=== PATIENT | female | born 1975 | race Caucasian/White ===

== ENCOUNTER 2022-12-20 21:23 | Emergency (ER) | payer OTHER ==
--- OUTSIDE RECORDS SUMMARY | 2022-12-20 21:33 | XMS REPORT | Continuity of Care Document ---
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 [facility] Td 2016-07-16 Completed [facility] 00:00:00 [facility] Td 2016-07-16 Completed University of 00:00:00 [facility] TD, NOS 2016-07-16 Completed University [facility] 00:00:00 [facility] TD, NOS 2016-07-16 Completed University [facility] 00:00:00 [facility] TD, NOS 2016-07-16 Completed [facility] 00:00:00 [facility] TD, NOS 2016-07-16 Completed [facility] of 00:00:00 [facility] TD, NOS 2016-07-16 Completed University of 00:00:00 [facility] Vital Signs Vital Name Observation Time Observation Value Comments Source Systolic blood 2022-12-17 22:19:00 110 mm[Hg] Beatrice Seybold - pressure External Diastolic blood 2022-12-17 22:19:00 72 mm[Hg] D[place] rosas Seybold - pressure External Heart rate 2022-12-17 22:19:00 84 /min Beatrice almarazbold - External Body temperature 2022-12-17 22:19:00 36.89 Shadia Jennyfer ey Seybold - External Respiratory rate 2022-12-17 22:19:00 17 /min Jennyfer almaraz Seybold - External Body height 2022-12-17 22:19:00 167 cm Beatrice almarazbold - External Body weight 2022-12-17 22:19:00 84.369 kg Beatrice Saldana eybold - External BMI 2022-12-17 22:19:00 30.25 kg/m2 Beatrice almarazbold - External Systolic blood 2022-11-26 19:15:00 112 mm[Hg] Univer sity of pressure [facility] Diastolic blood 2022-11-26 19:15:00 70 mm[Hg] Unive rsity of pressure [facility] Heart rate 2022-11-26 19:15:00 67 /min Universi ty of [facility] Body temperature 2022-11-26 19:15:00 36.72 Shadia Univ ersity of [facility] Respiratory rate 2022-11-26 19:15:00 16 /min Univ ersity of [facility] Body height 2022-11-26 19:15:00 170.2 cm [facility]i ty [facility] Body weight 2022-11-26 19:15:00 83.235 kg [facility]i [facility] BMI 2022-11-26 19:15:00 28.74 kg/m2 Universi ty [facility] Oxygen saturation in 2022-11-26 19:15:00 98 /min University of Arterial blood by [place] [facility] alisa Pulse oximetry Branch Systolic blood 2022-09-10 19:06:00 112 mm[Hg] Univer sity of pressure [facility] Diastolic blood 2022-09-10 19:06:00 74 mm[Hg] Unive rsity of pressure [facility] Heart rate 2022-09-10 19:06:00 82 /min Universi ty [facility] Body temperature 2022-09-10 19:06:00 37 Shadia Univ ersity of [facility] Respiratory rate 2022-09-10 19:06:00 16 /min Univ ersity of [facility] Body height 2022-09-10 19:06:00 172.7 cm [facility] Body weight 2022-09-10 19:06:00 83.416 kg [facility] BMI 2022-09-10 19:06:00 27.96 kg/m2 Universi ty [facility] Oxygen saturation in 2022-09-10 19:06:00 99 /min University of Arterial blood by [facility] Pulse oximetry Branch Body height 2022-09-05 15:48:00 172.7 cm Universi ty of [facility] Systolic blood 2022-08-22 19:44:00 118 mm[Hg] Univer sity of pressure [facility] Diastolic blood 2022-08-22 19:44:00 90 mm[Hg] Unive rsity of pressure [facility] Heart rate 2022-08-22 19:44:00 78 /min Universi ty [facility] Body temperature 2022-08-22 19:44:00 36.56 Shadia Univ ersity of [facility] Respiratory rate 2022-08-22 19:44:00 16 /min Univ ersity of [facility] Body height 2022-08-22 19:44:00 172.7 cm Universi ty [facility] Body weight 2022-08-22 19:44:00 83.915 kg Universi ty [facility] BMI 2022-08-22 19:44:00 28.13 kg/m2 Universi ty [facility] Oxygen saturation in 2022-08-22 19:44:00 98 /min University of Arterial blood by [facility] Pulse oximetry Branch Systolic blood 2022-08-01 12:29:00 120 mm[Hg] Univer sity of pressure [facility] Diastolic blood 2022-08-01 12:29:00 78 mm[Hg] Unive rsity of [facility] Heart rate 2022-08-01 12:29:00 78 /min Universi ty [facility] Body temperature 2022-08-01 12:29:00 36.67 Shadia [facility] Respiratory rate 2022-08-01 12:29:00 15 /min Univ [facility] Body height 2022-08-01 12:29:00 172.7 cm Universi ty [facility] Body weight 2022-08-01 12:29:00 83.689 kg Universi ty [facility] BMI 2022-08-01 12:29:00 28.05 kg/m2 Universi ty [facility] Oxygen saturation in 2022-08-01 12:29:00 100 /min University of Arterial blood by [facility] Pulse oximetry [place] Procedures Procedure Date / Time Performing Clinician Source Performed POCT HEMOGLOBIN A1C TEST 2022-11-26 19:36:00 Viola Ly [facility] TESTOSTERONE, FREE AND 2022-11-26 09:00:00 Viola Ly [facility] TOTAL [facility] PROGESTERONE, LEVEL 2022-11-26 09:00:00 Viola Ly [facility] ESTRADIOL, LEVEL 2022-11-26 09:00:00 Viola Ly [facility] CBC WITH DIFF 2022-11-26 09:00:00 Viola Ly [facility] INSURANCE CORRESPONDENCE 2022-09-25 06:01:00 Doctor Unassigned, [facility] Rudy [facility] EXTERNAL PROVIDER RECORDS 2022-09-05 06:01:00 Doctor Unassigned, [facility] CONSENT/REFUSAL FOR 2022-08-22 19:40:01 Doctor Unassigned, [facility] DIAGNOSIS AND TREATMENT [facility] Plan of Care Planned Activity Planned Date Details Comments Source Future Scheduled Test 2022-07-20 IMM Influenza Seasonal [facility] 00:00:00 (>/= 19 yrs) [code = IMM Influenza Seasonal (>/= 19 yrs)] Future Scheduled Test 2022-07-20 IMM Influenza Seasonal [facility] 00:00:00 (>/= 19 yrs) [code = IMM Influenza Seasonal (>/= 19 yrs)] Future Scheduled Test 2022-07-20 IMM Influenza Seasonal [facility] 00:00:00 (>/= 19 yrs) [code = IMM Influenza Seasonal (>/= 19 yrs)] Future Scheduled Test 2022-07-20 IMM Influenza Seasonal [facility] 00:00:00 (>/= 19 yrs) [code = IMM Influenza Seasonal (>/= 19 yrs)] Future Scheduled Test 1979 Imm Pneumococcal 0-64 [facility] 00:00:00 (1 - PCV) [code = Imm Pneumococcal 0-64 (1 - PCV)] Future Scheduled Test 1979 Imm Pneumococcal 0-64 [facility] 00:00:00 (1 - PCV) [code = Imm Pneumococcal 0-64 (1 - PCV)] Future Scheduled Test 1979 Imm Pneumococcal 0-64 [facility] 00:00:00 (1 - PCV) [code = Imm Pneumococcal 0-64 (1 - PCV)] Future Scheduled Test 1979 Imm Pneumococcal 0-64 [facility] 00:00:00 (1 - PCV) [code = Imm Pneumococcal 0-64 (1 - PCV)] Future Scheduled Test 1974-01-24 COVID-19 Vaccine (#1) [facility] 00:00:00 [code = COVID-19 Vaccine (#1)] Future Scheduled Test 1974-01-24 COVID-19 Vaccine (#1) [facility] 00:00:00 [code = COVID-19 Vaccine (#1)] Future Scheduled Test 1974-01-24 COVID-19 Vaccine (#1) [facility] 00:00:00 [code = COVID-19 Vaccine (#1)] Future Scheduled Test 1974-01-24 COVID-19 Vaccine (#1) [facility] 00:00:00 [code = COVID-19 Vaccine (#1)] Encounters Start End Encounter Admission Attending Care Care Encounter Source Date/Time Date/Time Type Type Clinicians Facility Department ID 2021-08-21 Emergency [facility] [id number] [facility] 2022-12-17 2022-12-20 Inpatient EM Mic NARCISA MEDI.01 [id number] [facility] 23:10:00 18:54:00 Jyothi 67 [facility] 2022-12-19 2022-12-19 Outpatient CHAYO MONROY [id number] Beatrice 00:00:00 00:00:00 MD Saqib GATES 2022-12-19 2022-12-19 Refalisson Sorto [facility] [id number] Univers 00:00:00 00:00:00 [facility] 350.1.13.10 it y [facility] 4.2.7.2.686 Darrel as AARON?BLEA [id number] [address] MEDICAL OFFICE BUILDING 2022-12-17 2022-12-17 Outpatient BEN CORNELL [id number] Beatrice 16:30:00 16:30:00 Saqib ascencio 2022-12-17 2022-12-17 Outpatient BEN CORNELL [id number] Beatrice 00:00:00 00:00:00 Saqib ascencio 2022-12-13 2022-12-13 Emergency EM NARCISA Garrett [id number] [facility] 14:32:00 19:06:00 Fab 62 [facility] 2022-12-13 2022-12-13 Outpatient BEATRICE MARTINEZ [id number] Beatrice 10:15:00 10:15:00 NANCY ascencio 2022-12-09 2022-12-09 Emergency EM NARCISA Murillo [id number] [facility] 18:41:00 21:41:00 Emigdio 53 [facility] 2022-11-28 2022-11-28 Patient Malachi [facility] 1.2.840.114 [id number] Univers 00:00:00 00:00:00 Secure Msg Viola SHERIFF 350.1.13.10 ity of [place] [facility] 4.2.7.2.686 Darrel as CLINIC - [id number] [address] 2022-11-26 2022-11-26 Outpatient Shannan LY [facility] [id number] Univers 13:30:00 16:05:40 VIOLA ity [facility] 2022-11-26 2022-11-[address] [facility] 1.2.840.114 [id number] Univers 13:30:00 16:05:40 Visit Viola SHERIFF 350.1.13.10 it y of [place] [facility] 4.2.7.2.686 Darrel as CLINIC - [id number] [address] 2022-09-25 2022-09-25 Orders Doctor JAILYN 1.2.840.114 [id number] Univers 00:00:00 00:00:00 Only Unassigned, JESSICA 350.1.13.10 ity of Rudy [facility] 4.2.7.2.686 Darrel as [id number] [address] 2022-09-23 2022-09-23 Outpatient [facility] [id number] Martin 00:00:00 00:00:00 [facility] 2022-09-16 2022-09-[address] [facility] 1.2.840.114 [id number] Univers 00:00:00 00:00:00 Secure Msg Viola SHERIFF 350.1.13.10 ity of [place] [facility] 4.2.7.2.686 Darrel as CLINIC - [id number] [address] 2022-09-10 2022-09-[address] [facility] 1.2.840.114 [id number] Univers 13:00:00 13:30:00 Visit Viola SHERIFF 350.1.13.10 it y of [place] [facility] 4.2.7.2.686 Darrel as CLINIC - [id number] [address] 2022-09-10 2022-09-10 [facility] [id number] Univers 13:00:00 13:00:00 VIOLA martinez of [facility] 2022-09-09 2022-09-09 [facility] 1.2.840.114 [id number] Univers 00:00:00 00:00:00 Juleeshayna IBARRA 350.1.13.10 ity of IALTY 4.2.7.2.[address] [place] [id number] DIABETES CLINIC 2022-09-05 2022-09-05 [facility] 1.2.840.114 [id number] Univers 09:00:00 09:30:00 Visit Julee IBARRA 350.1.13.10 ity of IALTY 4.2.7.2.[address] [place] [id number] DIABETES CLINIC 2022-09-05 2022-09-05 Outpatient R [facility] [id number] Univers 09:00:00 09:00:00 JULEE martinez [facility] 2022-09-05 2022-09-05 Orders Doctor JAILYN 1.2.840.114 [id number] Univers 00:00:00 00:00:00 Only Unassigned, JESSICA 350.1.13.10 ity of Rudy [facility] 4.2.7.2.686 [facility] [id number] [facility] 009 Branch 2022-08-22 2022-08-22 Emergency X [facility] ERT [id number] Univers 14:46:00 15:35:00 CHRIS martinez of [facility] 2022-08-22 2022-08-[address] [facility] [id number] Univers 14:46:00 15:35:00 Chris REEDER 350.1.13.10 i ty of Jose THAKUR 4.2.7.2.686 [facility] [phone] [facility] 084 Branch 2022-08-12 2022-08-[address] [facility] 1.2.509.548 [id number] Univers 00:00:00 00:00:00 Viola SHERIFF 350.1.13.10 it y of [place] 4.2.7.2.686 Darrel as CLINIC - [id number] [address] 2022-08-01 2022-08-01 Office Malachi [facility] 1.2.840.114 [id number] Univers 07:30:00 08:00:00 Visit Viola SHERIFF 350.1.13.10 it y of [place] [facility] 4.2.7.2.686 Darrel as CLINIC - [phone] [address] 2022-08-01 2022-08-01 Outpatient R MALACHI [facility] [id number] Univers 07:30:00 07:30:[facility] 2022-06-17 2022-06-[address] [facility] 1.2.840.114 [id number] Univers 00:00:00 00:00:00 Viola SHERIFF 350.1.13.10 it y of [place] 4.2.7.2.686 Darrel as CLINIC - [phone] [address] 2022-06-13 2022-06-[address] [facility] 1.2.840.114 [id number] Univers 00:00:00 00:00:00 AbdoulMouth Party 350.1.13.10 it y of [place] 4.2.7.2.686 Darrel as AARON?BLEA [phone] [address] MEDICAL OFFICE BUILDING 2022-05-01 2022-05-01 Outpatient R PARI [facility] [id number] Univers 08:15:00 08:15:00 [facility] 2022-04-30 2022-04-[address] [facility] 1.2.840.114 [id number] Univers 13:30:00 14:00:00 Visit Viola SHERIFF 350.1.13.10 it y of [place] [facility] 4.2.7.2.686 Darrel as CLINIC - [id number] [address] 2022-04-30 2022-04-30 Outpatient R MALACHI [facility] [id number] Univers 13:30:00 13:30:00 [facility] 2022-04-30 2022-04-30 Outpatient R LY [facility] [id number] Univers 13:30:00 13:30:00 [facility] 2022-04-30 2022-04-30 Outpatient R LY [facility] [id number] Univers 13:30:00 13:30:00 [facility] 2022-04-30 2022-04-30 Orders Doctor JAILYN 1.2.840.114 [id number] Univers 00:00:00 00:00:00 Only Unassigned, JESSICA 350.1.13.10 ity of Rudy [facility] 4.2.7.2.686 [facility] [id number] [facility] [address] [place] 2022-04-29 2022-04-29 Outpatient [facility] [id number] Univers 10:00:00 11:45:27 [facility] 2022-04-29 2022-04-[address] [facility] 1.2.840.114 [id number] Univers 10:00:00 11:45:27 Visit Alondra [facility] 350.1.13.10 i ty of EYE 4.2.7.2.[address] [facility] [place] [place] [id number] [address] 2022-04-29 2022-04-29 Outpatient [facility]an [facility] [id number] Univers 10:00:00 10:00:00 [facility]ONDRA [facility] 2022-04-11 2022-04-11 Flotation Tender Pcp-Lab [facility] 1.2.840.114 [id number] Univers 15:15:00 15:30:00 Visit Milton Sorto PRIMARY 350.1.13.10 ity of [facility] 4.2.7.2.686 [facility] [id number] [address] 2022-04-11 2022-04-11 Flotation Tender Pcp-Lab [facility] 1.2.840.114 [id number] Univers 15:15:00 15:30:00 Visit Milton Sorto PRIMARY 350.1.13.10 ity [place].2.[place] [id number] [facility] [address] [place] 2022-04-11 2022-04-11 Outpatient R NOREEN [facility] [id number] Univers 15:15:00 15:15:00 MILTON rosas [facility] 2022-04-11 2022-04-11 Outpatient R NOREEN [facility] [id number] Univers 14:20:00 15:11:10 MILTON y [facility] 2022-04-11 2022-04-11 Office Health, Tg Hormone [facility] 1.2.840 .114 [id number] Univers 14:20:00 15:11:10 Visit NoreenAcin Idania PRIMARY 350.1.13.10 ity of [place] 4[place]2.7.2.[place] [id number] [address] 2022-04-11 2022-04-11 Outpatient R NOREEN [facility] [id number] Univers 14:20:00 15:11:10 MILTON [facility] 2022-04-11 2022-04-11 Outpatient R [facility] [id number] Univers 14:20:00 14:20:00 ity [facility] 2022-03-27 2022-03-27 Outpatient R ANNALISE [facility] [id number] Univers 12:00:00 12:00:00 W[facility]ONG [facility] 2022-03-25 2022-03-25 [facility] [id number] Univers 09:30:00 10:24:59 [facility] 2022-03-25 2022-03-[address] [facility] 1.2.840.114 [id number] Univers 09:30:00 10:24:59 Visit [facility] 350.1.13.10 it y of [place] 4.2.7.2.686 Darrel as AARON?BLEA [id number] [address] MEDICAL OFFICE BUILDING 2022-03-25 2022-03-25 Outpatient R HERNAN [facility] [id number] Univers 09:30:00 09:30:00 ABDOUL itrosas [facility] 2022-03-25 2022-03-25 Orders Doctor JAILYN 1.2.840.114 [id number] Univers 00:00:00 00:00:00 Only Unassigned, JESSICA 350.1.13.10 ity of Rudy HOSPITAL 4.2.7.2.686 Darrel as [id number] [address] 2022-03-21 2022-03-[address] [facility] 1.2.840.114 [id number] Univers 00:00:00 00:00:00 Milton eVendor Check HEALTH 350.1.13.10 it y of [place] 4.2.7.2.686 Darrel as AARON?BLEA [phone] [address] MEDICAL OFFICE [facility] 2022-03-19 2022-03-[address] [facility] 1.2.422.813 [id number] Univers 00:00:00 00:00:00 Secure Msg Milton eVendor Check HEALTH 350.1.13.10 ity of [place] 4.2.7.2.686 Darrel as AARON?BLEA [id number] [address] OFFICE [facility] 2022-03-19 2022-03-[address] [facility] 1.2.973.638 [id number] Univers 00:00:00 00:00:00 Secure [facility] HEALTH 350.1.13.10 ity of [place] 4.2.7.2.686 Darrel as AARON?BLEA [id number] [address] OFFICE [facility] 2022-03-15 2022-03-15 [facility] [id number] Univers 16:00:00 16:00:00 MILTON martinez [facility] 2022-01-28 2022-01-28 Flotation Tender Lab, Ang - Db [facility] 1.2.840.1 [id number] Univers 09:45:00 11:05:06 Visit Otilia Townsend A HEALTH 350.1.1 3.10 ity of [place] 4.2.7.2.686 Darrel as AARON?BLEA [id number] Ne dical [facility] [address] MEDICAL OFFICE BUILDING 2022-01-28 2022-01-28 Outpatient R CARY [facility] [id number] Univers 09:45:00 09:45:00 OTILIA martinez [facility] 2022-01-08 2022-01-08 Outpatient R CARY [facility] [id number] Univers 15:40:00 16:36:33 OTILIA rosas [facility] 2022-01-08 2022-01-[address] [facility] 1.2.840.114 [id number] Univers 15:40:00 16:36:33 Visit Otilia REEDER 350.1.13.10 michelle charles [place].2.7.2.686 [place] [id number] [facility] [place] [address] Branch BUILDING 2022-01-08 2022-01-08 Outpatient R CARY [facility] [id number] Univers 15:40:00 16:36:33 OTILIAGÉNESIS martinez [facility] 2022-01-08 2022-01-08 Outpatient R CARY [facility] [id number] Univers 15:40:00 15:40:00 OTILIA rosas [facility] 2022-01-08 2022-01-08 Outpatient R CARY [facility] [id number] Univers 15:40:00 15:40:00 [facility]ILIA [facility] 2022-01-08 2022-01-08 Outpatient R LOREN [facility] [id number] Univers 14:40:00 14:40:00 ANDER rosas [facility] 2022-01-01 2022-01-01 Outpatient R NOREEN [facility] [id number] Univers 16:30:00 16:30:00 [facility]TON [facility] 2021-12-14 2021-12-14 Outpatient R NOREEN [facility] [id number] Univers 14:00:00 16:01:45 [facility]TON [facility] 2021-12-14 2021-12-14 Outpatient Shannan NOREEN [facility] [id number] Univers 14:00:00 14:00:00 MILTON martinez [facility] 2021-12-14 2021-12-14 Outpatient Shannan SORTO [facility] [id number] Univers 14:00:00 14:00:00 MILTON martinez [facility] 2021-12-06 2021-12-[address] [facility] 1.2.840.114 [id number] [facility] 00:00:00 00:00:00 Otilia A [place] 350.1.13.10 ity of [place] 4.2.7.2.[place] [id number] [address] 2021-12-06 2021-12-06 [facility] 1.2.840.114 [id number] [facility] 00:00:00 00:00:00 Otilia A [place] 350.1.13.10 ity of [place] 4.2.7.2.686 [place] [id number] [address] 2021-11-29 2021-11-29 [facility] 1.2.840.114 [id number] Univers 00:00:00 00:00:00 Otilia A [place] 350.1.13.10 ity of [place] 4.2.7.2.686 [place] [id number] [address] 2021-11-28 2021-11-28 [facility] 1.2.840.114 [id number] [facility] 00:00:00 00:00:00 Otilia A [place] 350.1.13.10 ity of [place] 4.2.7.2.686 [place] [id number] [address] 2021-11-21 2021-11-21 Outpatient BEATRICE SEGOVIA [id number] Beatrice 14:45:00 14:45:00 INJ Seybol d 2021-11-21 2021-11-21 Outpatient BEATRICE SEGOVIA [id number] Beatrice 13:45:00 13:45:00 INJ Seybol d 2021-11-06 2021-11-06 Outpatient R JAX FERNANDES [facility] [id number] Univers 14:00:00 15:06:07 JAX FERNANDES ity [facility] 2021-11-06 2021-11-06 Office Ken [facility] 1.2.840.114 [id number] Univers 14:00:00 15:06:07 Visit [facility] 350.1.13.10 ity of [place].2.7.2.[place] [id number] Ne dical [facility]44 [facility] 2021-11-01 2021-11-[address] [facility] 1.2.840.114 [id number] Univers 00:00:00 00:00:00 [facility] [employer] 350.1.13.10 it y of [place] 4.2.7.2.686 Darrel as AARON?BLEA [phone] Ne dical KNEY [address] [facility] OFFICE [facility] 2021-10-25 2021-10-25 Outpatient R ELIEZER [facility] [id number] Univers 15:15:00 15:36:39 [facility] 2021-10-25 2021-10-25 Letter JAILYN Murphy 1.2.840.114 [id number] Univers 00:00:00 00:00:00 (Out) Afia LOPEZ 350.1.13.10 it y of [facility] 4.2.7.2.686 Darrel as [id number] [address] 2021-10-23 2021-10-23 Outpatient R RENE [facility] [id number] Univers 14:45:00 15:03:58 [facility]ET [facility] 2021-10-23 2021-10-23 Laboratory Only, Ang Db Test [facility] 1.2.8 40.114 [id number] Univers 14:45:00 15:00:00 Only Manjeet Galvan [facility] 350.1.13.10 ity of [place] 4.2.7.2.686 Darrel as AARON?BLEA [phone] Me dicselma CASTILLO [address] [facility] 2021-10-23 2021-10-23 Orders Doctor JAILYN 1.2.840.114 [id number] Univers 00:00:00 00:00:00 Only Unassigned, JESSICA 350.1.13.10 ity of [facility] 4.2.7.2.686 Darrel as [phone] [facility] [address] 2021-10-15 2021-10-15 Telephone Noreen [facility] 1.2.840.114 [id number] Univers 00:00:00 00:00:00 [facility] 350.1.13.10 it y of [place] 4.2.7.2.686 Darrel as AARON?BLEA [phone] Ne adilia OMEGA [address] [facility] 2021-10-09 2021-10-11 Inpatient X ELIEZER [facility] [facility] [id number] Univers 07:43:00 15:17:00 ESTELA martinez [facility] 2021-10-09 2021-10-11 [facility] Lesley Rafael Ander [facility] 1.2. 840.114 [id number] Univers 07:43:00 15:17:00 Encounter Estela Martins [facility] [id number] ity of [place] 4.2.7.2.686 [phone] [address] ([facility]) 2021-10-09 2021-10-09 Surgery Eliezer [facility] 1.2.840.114 [id number] Univers 15:57:00 17:15:00 [facility] [id number] ity of [place] 4.2.7.2.686 [place] [facility] AT [phone] Ne adilia STACK 020 [facility] 2021-10-09 2021-10-09 Outpatient R JAX FERNANDES [facility] [id number] Univers 11:00:00 11:00:00 JAX FERNANDES ity [facility] 2021-10-09 2021-10-09 Emergency X LUCILLE [facility] ERT [id number] Univers 03:07:00 06:02:00 MITRA martinez [facility] 2021-10-09 2021-10-09 Emergency [place], [facility] [id number] Univers 03:07:00 06:02:00 Mitra REEDER [id number] i ty [facility] [id number] [place] [phone] [address] 2021-10-08 2021-10-08 Emergency X , [facility] ERT [id number] Univers 01:41:00 02:07:00 BENTON martinez [facility] 2021-10-08 2021-10-[address] [facility] [id number] Univers 01:41:00 02:07:00 Benton REEDER [id number] i ty of [facility] [id number] [place] [phone] [address] 2021-10-08 2021-10-[address] [facility] 1.2.840.114 [id number] Univers 00:00:00 00:00:00 Otilia REEDER [id number] ity of [facility] [id number] [place] [phone] Ne dical NAL 044 [facility] 2021-10-07 2021-10-07 Telephone [facility] [id number] Univers 00:00:00 00:00:00 Patient VARINDER [id number] i ty of Does Not [facility] [id number] Darrel as Have A PROFESSIO [phone] Me dical NAL 188 [facility] 2021-10-06 2021-10-06 Emergency X ANDRIA, [facility] ERT [id number] Univers 16:41:00 20:23:00 MATT martinez [facility] 2021-10-06 2021-10-[address] [facility] 1.2.840.114 [id number] Univers 16:41:00 20:23:00 Matt REEDER [id number] ity of [id number] [place] [phone] [address] 2021-10-02 2021-10-02 Patient Cary [facility] 1.2.840.114 [id number] Univers 00:00:00 00:00:00 Secure Msg Otilia Wilkerson VARINDER [id number] ity of [place] 4.2.7.2.686 [place] [phone] Ne dical NAL [address] BU[address]ING 2021 2021 Telephone [facility] 1.2.840.114 [id number] Univers 00:00:00 00:00:00 Misaelrachelle [facility] [id number] it y of [employer] 4.2.7.2.686 Darrel as Aaron?Blea [phone] [facility] kney [address] [facility] 2021-07-24 2021-07-25 Emergency [facility] 1.2.840.114 [id number] Univers 22:23:00 00:12:00 Justino Reeder 350.1.13.10 i ty of [place] 4.2.7.2.686 [place] [phone] [address] 2021-03-14 2021-03-14 Outpatient R ANTONIO [facility] [id number] Univers 11:30:00 11:30:00 SEUN martinez o f [facility] 2021-03-14 2021-03-[address] [facility] 1.2.840.114 [id number] Univers 08:12:44 08:42:44 ne Visit Seun Reeder 350.1.13.10 ity of [place] 4.2.7.2.686 [place] [phone] Ne dical nal [address] [facility] 2021-03-08 2021-03-08 Patient Cary [facility] 1.2.840.114 [id number] Univers 00:00:00 00:00:00 Secure Msg Otilia Wilkerson Varinder 350.1.13.10 ity of [place] 4.2.7.2.686 [place] [phone] Ne dical nal 231 [facility] 2021-03-03 2021-03-04 Emergency X ASHU, [facility] ERT [id number] Univers 23:03:00 02:57:00 MARTHA itrosas of [facility] 2021-03-03 2021-03-[address] [facility] 1.2.840.114 [id number] Univers 23:03:00 02:57:00 Martha Aguilarton 350.1.13.10 i ty of [place] 4.2.7.2.686 [place] [phone] [address] 2021-01-04 2021-01-[address] [facility] 1.2.840.114 [id number] Univers 00:00:00 00:00:00 Outreach Claudio [facility] 350.1.13.10 i ty of [facility] 4.2.7.2.686 [place] [phone] [address] 2020-08-15 2020-08-15 [facility]phone [facility] 1.2.840.114 [id number] Univers 00:00:00 00:00:00 Otilia A [employer] 350.1.13.10 ity of [place] 4.2.7.2.686 [place] [phone] Ne dical [address] 2020-08-07 2020-08-[address] [facility] 1.2.840.114 [id number] Univers 00:00:00 00:00:00 Secure Msg Otilia A [employer] 350.1.13.10 ity of [place] 4.2.7.2.686 [place] [phone] Ne dical [address] 2020-05-18 2020-05-18 [facility] 1.2.840.114 [id number] Univers 00:00:00 00:00:00 Secure Msg Otilia A [employer] 350.1.13.10 ity of [place] 4.2.7.2.686 [place] [phone] Ne dical nal 044 [facility] 2020-04-14 2020-04-14 Telephone Cary KYCEE 1.2.840.114 [id number] Univers 00:00:00 00:00:00 Otilia Rock Varinder 350.1.13.10 [facility] 4.2.7.2.686 Barbie Nunes [phone] Ne dical nal 231 [facility] Results Test Description Test Time Test Comments Results Result Comments Source GLUCOSE BEDSIDE 2022-12-20 11:08:00 Test Item Value Reference Range Interpretation Comme nts GLUCOSE BEDSIDE (test code = 148 MG/DL 70-110 H Performed by certified 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 GLUCOSE [id number] 07:20:00 Test Item Value Reference Range Interpretation Comments GLUCOSE BEDSIDE (test 140 MG/DL 70-110 H Perfor med by certified code = GLUBED) 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 [id number] 20:20:00 Test Item Value Reference Range Interpretation Comments GLUCOSE BEDSIDE (test 211 MG/DL 70-110 H Perfor med by certified code = GLUBED) 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 [id number] 16:07:00 Test Item Value Reference Range Interpretation Comments GLUCOSE BEDSIDE (test 180 MG/DL 70-110 H Perfor med by certified code = GLUBED) 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 [id number] 12:08:00 Test Item Value Reference Range Interpretation Comments GLUCOSE BEDSIDE (test 195 MG/DL 70-110 H Perfor med by certified code = GLUBED) 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 [id number] 07:08:00 Test Item Value Reference Range Interpretation Comments GLUCOSE BEDSIDE (test 141 MG/DL 70-110 H Perfor med by certified code = GLUBED) 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 [id number] 19:55:00 Test Item Value Reference Range Interpretation Comments GLUCOSE BEDSIDE (test 178 MG/DL 70-110 H Perfor med by certified code = GLUBED) 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 [id number] 17:33:00 Test Item Value Reference Range Interpretation Comments GLUCOSE BEDSIDE (test 164 MG/DL 70-110 H Perfor med by certified code = GLUBED) 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 [id number] 11:52:00 Test Item Value Reference Range Interpretation Comments GLUCOSE BEDSIDE (test 248 MG/DL 70-110 H Perfor med by certified code = GLUBED) 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 [facility] BASIC METABOLIC [id number] 05:56:00 Test Item Value Reference Range Interpretation Comments SODIUM (test code = 137 mEq/L 134-147 N NA) POTASSIUM (test code 4.0 mEq/L 3.4-5.0 N = K) CHLORIDE (test code 104 mEq/L 100-108 N = CL) CARBON DIOXIDE (test 25 mEq/l 21-33 N code = CO2) ANION GAP (test code 12 0-20 N = GAP) GLUCOSE (test code = 159 mg/dL 70-110 H GLU) BLOOD UREA NITROGEN 20 mg/dL 7-18 H (test code = BUN) GLOMERULAR 61.6 95-105 L The Glomerular FILTRATION RATE Filtration R ate is a (test code = GFR) calculated parameterbased on serum Creatinine, pat ient age and sex. GFR va luesless than 60 mL/min/ 1.73 square meters a re indicative ofCh ronic Kidney Disease. Values less than 15 mL/min/1.73squa re meters indicate Kidney failure. The calculation forGFR is based on the CKD-EPI (2020) calculat ion. This formulais race indifferent and is the recommended for jamar for GFRby the [facility] on for Adults.The GFR will not calculate if th e sex is unknown or if thepatient's ag e is <18 years. CREATININE (test 1.1 mg/dL 0.6-1.3 N code = CREAT) CALCIUM (test code = 9.1 mg/dL 8.0-10.5 N CA) CBC W/AUTO [id number] 05:44:00 Test Item Value Reference Range Interpretation Comments WHITE BLOOD CELL (test code = 12.1 x10 3/uL 4.5-11.0 H WBC) RED BLOOD CELL (test code = 4.10 x10 6/uL 3.54-5.02 N RBC) HEMOGLOBIN (test code = HGB) 12.5 g/dL 11.0-15.0 N HEMATOCRIT (test code = HCT) 36.5 % 33.0-45.0 N MEAN CELL VOLUME (test code = 89.0 fL 81.0-99.0 N MCV) MEAN CELL HGB (test code = MCH) 30.5 pg 27.0-33.0 N MEAN CELL HGB CONCETRATION 34.2 g/dL 33.0-37.0 N (test code = MCHC) RED CELL DISTRIBUTION WIDTH CV 12.3 % 11.5-14.5 N (test code = RDW) RED CELL DISTRIBUTION WIDTH SD 39.8 fL 37.0-54.0 N (test code = RDW-SD) PLATELET COUNT (test code = 199 x10 3/uL 150-400 N PLT) MEAN PLATELET VOLUME (test code 11.1 fL 7.0-9.0 H = MPV) NEUTROPHIL % (test code = NT%) 72.2 % 56.0-77.0 N IMMATURE GRANULOCYTE % (test 0.6 % 0.0-2.0 N code = IG%) LYMPHOCYTE % (test code = LY%) 17.9 % 14.0-32.0 N MONOCYTE % (test code = MO%) 6.2 % 4.8-9.0 N EOSINOPHIL % (test code = EO%) 2.6 % 0.3-3.7 N BASOPHIL % (test code = BA%) 0.5 % 0.0-2.0 N NUCLEATED RBC % (test code = 0.0 % 0-0 N NRBC%) NEUTROPHIL # (test code = NT#) 8.77 x10 3/uL 2.0-7.6 H IMMATURE GRANULOCYTE # (test 0.07 x10 3/uL 0.00-0.03 H code = IG#) LYMPHOCYTE # (test code = LY#) 2.17 x10 3/uL 1.0-3.8 N MONOCYTE # (test code = MO#) 0.75 x10 3/uL 0.1-0.8 N EOSINOPHIL # (test code = EO#) 0.31 x10 3/uL 0.0-0.2 H BASOPHIL # (test code = BA#) 0.06 x10 3/uL 0.0-0.2 N NUCLEATED RBC # (test code = 0.00 x10 3/uL 0.0-0.1 N NRBC#) MANUAL DIFF REQUIRED (test code NO = MDIFF) COMPREHENSIVE METABOLIC [id number] 22:31:00 Test Item Value Reference Range Interpretation Comments SODIUM (test code = 136 mEq/L 134-147 N NA) POTASSIUM (test code 4.2 mEq/L 3.4-5.0 N = K) CHLORIDE (test code 101 mEq/L 100-108 N = CL) CARBON DIOXIDE (test 25 mEq/l 21-33 N code = CO2) ANION GAP (test code 14 0-20 N = GAP) GLUCOSE (test code = 315 mg/dL 70-110 H GLU) BLOOD UREA NITROGEN 17 mg/dL 7-18 N (test code = BUN) GLOMERULAR 55.5 95-105 L The Glomerular FILTRATION RATE Filtration R ate is a (test code = GFR) calculated parameterbased on serum Creatinine, pat ient age and sex. GFR va luesless than 60 mL/min/ 1.73 square meters a re indicative ofCh ronic Kidney Disease. Values less than 15 mL/min/1.73squa re meters indicate Kidney failure. The calculation for GFR is based on the CK D-EPI (2020) calculat ion. This formulais race indifferent and is the recommended for jamar for GFRby the [facility] Kidney Foundati on for Adults.The GFR will not calculate if th e sex is unknown or if thepatient's ag e is <18 years. CREATININE (test 1.2 mg/dL 0.6-1.3 N code = CREAT) TOTAL PROTEIN (test 7.1 g/dL 6.4-8.2 N code = PROT) ALBUMIN (test code = 4.00 g/dL 3.4-5.0 N ALB) CALCIUM (test code = 9.6 mg/dL 8.0-10.5 N CA) BILIRUBIN TOTAL 0.40 mg/dL 0.0-1.0 N (test code = BILT) SGOT/AST (test code 11 IUnit/L 15-37 L = AST) SGPT/ALT (test code 13 IUnit/L 30-65 L = ALT) ALKALINE PHOSPHATASE 88 IUnit/L 20-125 N TOTAL (test code = ALKP) UA RFLX MICR CULT IF [id number] 22:22:00 Test Item Value Reference Range Interpretation Comments UA COLOR (test code = COLU) STRAW YEL/STRAW UA APPEARANCE (test code = CLEAR CLEAR APPU) UA GLUCOSE DIPSTICK (test 3+ NEGATIVE A code = DGLUU) UA BILIRUBIN DIPSTICK (test NEGATIVE NEGATIVE code = BILU) UA KETONE DIPSTICK (test NEGATIVE NEGATIVE code = KETU) UA SPECIFIC GRAVITY (test 1.006 1.005-1.030 N code = SGU) UA BLOOD DIPSTICK (test NEGATIVE NEGATIVE code = VERÓNICA) UA PH DIPSTICK (test code = 6.0 5.0-7.0 N RAYMOND) UA PROTEIN DIPSTICK (test NEGATIVE NEGATIVE code = PROU) UA UROBILINIOGEN DIPSTICK 0.2 mg/dL 0.2-1.0 (test code = URO) UA NITRITE DIPSTICK (test NEGATIVE NEGATIVE code = CORY) UA LEUKOCYTE ESTERASE NEGATIVE NEGATIVE DIPSTICK (test code = LEUU) UA WBC (test code = WBCU) 0-3 WBC/HPF 0-3 UA RBC (test code = RBCU) NONE SEEN RBC/HPF 0-3 UA WBC NO REFLEX (test code 0-3 WBC/HPF 0-3 = WBCUCL) UA BACTERIA (test code = NONE SEEN /HPF NONE SEEN BACU) UA SQUAMOUS CELLS (test 0-5 /HPF NONE SEEN code = SQU) UA MUCUS (test code = MUCU) TRACE /LPF NONE SEEN Indication for culture: RiskForSepsis-no oth srcSpecimen Description: CLEAN CATCHCBC W/AUTO [id number] 22:14:00 Test Item Value Reference Range Interpretation Comments WHITE BLOOD CELL (test code = 16.1 x10 3/uL 4.5-11.0 H WBC) RED BLOOD CELL (test code = 4.46 x10 6/uL 3.54-5.02 N RBC) HEMOGLOBIN (test code = HGB) 13.5 g/dL 11.0-15.0 N HEMATOCRIT (test code = HCT) 39.3 % 33.0-45.0 N MEAN CELL VOLUME (test code = 88.1 fL 81.0-99.0 N MCV) MEAN CELL HGB (test code = 30.3 pg 27.0-33.0 N MCH) MEAN CELL HGB CONCETRATION 34.4 g/dL 33.0-37.0 N (test code = MCHC) RED CELL DISTRIBUTION WIDTH CV 12.2 % 11.5-14.5 N (test code = RDW) RED CELL DISTRIBUTION WIDTH SD 39.2 fL 37.0-54.0 N (test code = RDW-SD) PLATELET COUNT (test code = 225 x10 3/uL 150-400 N PLT) MEAN PLATELET VOLUME (test 11.2 fL 7.0-9.0 H code = MPV) NEUTROPHIL % (test code = NT%) 78.6 % 56.0-77.0 H IMMATURE GRANULOCYTE % (test 0.5 % 0.0-2.0 N code = IG%) LYMPHOCYTE % (test code = LY%) 15.2 % 14.0-32.0 N MONOCYTE % (test code = MO%) 4.3 % 4.8-9.0 L EOSINOPHIL % (test code = EO%) 1.1 % 0.3-3.7 N BASOPHIL % (test code = BA%) 0.3 % 0.0-2.0 N NUCLEATED RBC % (test code = 0.0 % 0-0 N NRBC%) NEUTROPHIL # (test code = NT#) 12.67 x10 3/uL 2.0-7.6 H IMMATURE GRANULOCYTE # (test 0.08 x10 3/uL 0.00-0.03 H code = IG#) LYMPHOCYTE # (test code = LY#) 2.45 x10 3/uL 1.0-3.8 N MONOCYTE # (test code = MO#) 0.69 x10 3/uL 0.1-0.8 N EOSINOPHIL # (test code = EO#) 0.18 x10 3/uL 0.0-0.2 N BASOPHIL # (test code = BA#) 0.05 x10 3/uL 0.0-0.2 N NUCLEATED RBC # (test code = 0.00 x10 3/uL 0.0-0.1 N NRBC#) MANUAL DIFF REQUIRED (test NO code = MDIFF) - DUP AB/PEL/SC/[id number] 00:00:00 [facility] 1975 Sex: F Name: JACK PHILLIPS [facility] : 1975 Age/S: 47 / F [address] [place] [address] Blvd Unit #: [id number] Loc: [place] [address] Phys: Fab Garrett MD Acct: [id number] Dis Date: Status: REG ER PHONE#: [phone] Exam Date: 12/17/20222157 FAX #: [phone] Reason: SEE SCROTAL EXAMS: CPT CODE:[id number] DUP AB/PEL/SC/LTD [id number] PROCEDURE INFORMATION: Exam: US Scrotum and Artery or Vein of theAbdominal and/or Reproductive Organs, Limited Scrotum Exam date and time: 12/17/2022 9:28 PM Age: 47 years old Clinical indication: Other: Testicular pain; Scrotum pain; Additional info: Scrotal pain TECHNIQUE: Imaging protocol: Real- time ultrasound of the scrotum. Real-time duplex ultrasound scan of the arterial or venous flow with murphy scale, color Doppler flow and spectral waveform analysis with image documentation. Limited Duplex exam focused of the scrotum. Duplex exam was performed to evaluatefor torsion and other vascular conditions. COMPARISON: US SCROTUM AND CNTS 12/09/2022 8:36 PM FINDINGS: Testicles: Right testicle measures 2.3 x 1.5 x 1.7 cm. Left testicle measures 2.6 x 1.3 x 1.9 cm. Testicles are homogeneous without circumscribed masses identified. Low resistance arterial waveforms documented to each testicle. Epididymides: 3 mm round anechoic avascular cyst in the right epididymisis seen. Left epididymis appears normal. Scrotum: Mild left varicocele present. IMPRESSION: 1. Small testicles once again seen. 2. Mild left varicocele. 3. Small right epididymal cyst. at 2247 Reported and signed by: Jaxon Tomlinson M.D. CC: Fab Garrett MD Technologist: Sylvia Gonzales RDMS(AB)(OB) Trnscb Date/Time: 12/17/2022 (2246) [email or web address] Orig Print D/T: S: 12/17/2022 (2246) Probe: PAGE 1 Signed Report- US SCROTUM AND [id number] 00:00:00 [facility] : 1975 Sex: F Name: JACK PHILLIPS [facility] : 1975 Age/S: 47 / F [address] [place] [address] Blvd Unit #: [id number] Loc: [place] [address] Phys: Fab Garrett MD Acct: [id number] Dis Date: Status: REG ER PHONE #: [phone] Exam Date: 12/17/20222156 FAX #: [phone] Reason: scrotal pain EXAMS: CPT CODE: [id number] US SCROTUM AND CNTS 24615 PROCEDURE INFORMATION: Exam: US Scrotum and Artery or Vein of the Abdominal and/or Reproductive Organs, Limited Scrotum Exam date and time: 12/17/2022 9:28 PM Age: 47years old Clinical indication: Other: Testicular pain; Scrotum pain; Additional info: Scrotal pain TECHNIQUE: Imaging protocol: Real-time ultrasound of the scrotum. Real-time duplex ultrasound scan of the arterial or venous flow with murphy scale, color Doppler flow and spectral waveform analysis with image documentation. Limited Duplex exam focused of the scrotum. Duplex exam was performed to evaluatefor torsion and other vascular conditions. COMPARISON: US SCROTUM AND CNTS 12/09/2022 8:36 PM FINDINGS: Testicles: Right testicle measures 2.3 x 1.5 x 1.7 cm. Left testicle measures 2.6 x 1.3 x 1.9 cm. Testicles are homogeneous without circumscribed masses identified. Low resistance arterial waveforms documented to each testicle. Epididymides: 3 mm round anechoic avascular cyst in the right epididymisis seen. Left epididymis appears normal. Scrotum: Mild left varicocele present. IMPRESSION: 1. Small testicles once again seen. 2. Mild left varicocele. 3. Small right epididymal cyst. at 2247 Reported and signed by: Jaxon Tomlinson M.D. CC: Fab Garrett MD Technologist: Sylvia Gonzales RDMS(AB)(OB) Trnscb Date/Time: 12/17/2022 (2246) [email or web address] Orig Print D/T: S: 12/17/2022 (2246) Probe: PAGE 1 Signed Report- CT ABD PELVIS W/O [id number] 00:00:00 [facility] : 1975 Sex: F Name: JACK PHILLIPS [facility] : 1975 Age/S: 47 / F [address] [place] [address] Unit #: [id number] Loc: [place] [address] Phys: aFb Garrett MD Acct: [id number] Dis Date: Status: REG ER PHONE #: [phone] Exam Date: 12/13/2022 1709 FAX #: [phone] Reason: abd pain EXAMS: CPT CODE: [id number] CT ABD PELVIS W/O CONT 70310 PROCEDURE INFORMATION: Exam: CT Abdomen And Pelvis Without Contrast Exam date and time: 12/13/2022 5:11 PM Age: 47 years old Clinical indication: Abdominal pain; Localized; Lower; Additional info: Abd pain TECHNIQUE: Imaging protocol: Computed tomography of the abdomen and pelvis without contrast. Radiation optimization: All CT scans at this facility use at least one of these dose optimization techniques: automated exposure control; mA and/or kV adjustment per patient size (includes targeted exams where dose is matched to clinical indication); or iterative reconstruction. REPORTING DATA: Count of CT and Cardiac NM exams in prior 12 months: This patient has received 0 known CTs and 0 known cardiac nuclear medicine studies in the 12 months prior to the current study. COMPARISON: [facility] AB/PEL/SC LTD 12/09/2022 8:36 PM FINDINGS: Lungs: Bilateral dependent lung atelectasis or scarring is demonstrated. Liver: Unremarkable. No mass. Gallbladder and bile ducts: Unremarkable. No calcified stones. No ductal dilation. Pancreas: Unremarkable. Spleen: Unremarkable. No s plenomegaly. Adrenal glands: Normal. No mass. Kidneys and ureters: Bilateral nephrolithiasis is demonstrated. Multiple bilateral renal calculi measure up to 3-4 mm. No visualized obstructing ureteral calculus. No visualized renal hydronephrosis. The visualized kidneys appear otherwise unremarkable. Stomach and bowel: Stomach appears distended with mostly fluid and debris. Recommend clinical correlation. The bowel appears otherwise unremarkable. No visualized evidence for bowel obstruction or ileus.Appendix: The visualized appendix appears unremarkable. Intraperitoneal space: No free air. No significant fluid collection. Vasculature: Unremarkable. No abdominal aortic aneurysm. Lymph nodes: No enlarged lymph nodes. Urinary bladder: Unremarkable as visualized. Reproductive: Unremarkable as visualized. PAGE 1 Signed Report (CONTINUED) Name: JACK PHILLIPS [facility] : 1975 Age/S: 47 / F [address] [place] [address] Unit #: [id number] Loc: [place] [address] Phys: Fab Garrett MD Acct: [id number] Dis Date: Status: REG ER PHONE #: [phone] Exam Date: 12/13/2022 1709 FAX #: [phone] Reason: abd pain EXAMS: CPT CODE: [id number] CT ABD PELVIS W/O CONT 54822 (Continued) Bones/joints: Mild to moderate generalized bony degenerative changes. Moderate to severe bony degenerative forbes ges involving the lower lumbar spine and lumbar sacral junction. Disc and osteophyte complexes with moderate to severe central canal and foraminal narrowing within the lower lumbar spine and lumbar sacral junction. Soft tissues: Unremarkable. IMPRESSION: 1. Bilateral nephrolithiasis. 2. Nonspecific gastric distension. Recommend clinical correlation for potential gastroparesis or outlet obstruction. 3. Chronic degenerative changes. at 1851 Reported and signed by: Estela Medel M.D. CC: Fab Garrett MD Technologist:Jesenia Alston, RT(R)(CT) CTDI: DLP: Trnscb Date/Time: 12/13/2022 (1850) [email or web address] Orig Print D/T: S: 12/13/2022 (1850) PAGE 2 Signed ReportUA RFLX MICR CULT IF INDICATED 2022-12-09 20:31:00 Test Item Value Reference Range Interpretation Comments UA COLOR (test code = COLU) YELLOW YEL/STRAW UA APPEARANCE (test code = APPU) CLEAR CLEAR UA GLUCOSE DIPSTICK (test code = 3+ NEGATIVE A DGLUU) UA BILIRUBIN DIPSTICK (test code NEGATIVE NEGATIVE = BILU) UA KETONE DIPSTICK (test code = NEGATIVE NEGATIVE KETU) UA SPECIFIC GRAVITY (test code = 1.022 1.005-1.030 N SGU) UA BLOOD DIPSTICK (test code = NEGATIVE NEGATIVE VERÓNICA) UA PH DIPSTICK (test code = RAYMOND) 6.0 5.0-7.0 N UA PROTEIN DIPSTICK (test code = NEGATIVE NEGATIVE PROU) UA UROBILINIOGEN DIPSTICK (test 0.2 mg/dL 0.2-1.0 code = URO) UA NITRITE DIPSTICK (test code = NEGATIVE NEGATIVE CORY) UA LEUKOCYTE ESTERASE DIPSTICK NEGATIVE NEGATIVE (test code = LEUU) UA WBC (test code = WBCU) 0-3 WBC/HPF 0-3 UA RBC (test code = RBCU) 0-3 RBC/HPF 0-3 UA WBC NO REFLEX (test code = 0-3 WBC/HPF 0-3 WBCUCL) UA BACTERIA (test code = BACU) TRACE /HPF NONE SEEN UA SQUAMOUS CELLS (test code = 0-5 /HPF NONE SEEN SQU) UA MUCUS (test code = MUCU) TRACE /LPF NONE SEEN Indication for culture: Suprapubic PainSpecimen Description: CLEAN CATCH- DUP AB/PEL/SC/[id number] 00:00:00 [facility] 1975 Sex: F Name: JACK PHILLIPS [facility] : 1975 Age/S: 47 / F [address] [place] [address] Blvd Unit #: [id number] Loc: [place] [address] Phys: EDDOC, GENERIC FOR EDM Acct: [id number] Dis Date: Status: REG ER PHONE #: [phone] Exam Date: 12/09/20222100 FAX #: [phone] Reason: SEE SCROTAL EXAMS: CPT CODE: [id number] DUP AB/PEL/SC/LTD [id number] PROCEDURE INFORMATION: Exam: US Scrotum and Artery or Vein ofthe Abdominal and/or Reproductive Organs, Limited Scrotum Exam date and time: 12/09/2022 8:36 PM Age: 47 years old Clinical indication: Other: Testicular pain; Scrotum pain; Additional info: Scrotal pain L > R, going through gender reassignment TECHNIQUE: Imaging protocol: Real-time ultrasound of the scrotum. Real-time duplex ultrasound scan of the arterial or venous flow with murphy scale, color Doppler flow and spectral waveform analysis with image documentation. Limited Duplex exam focused of the scrotum. Duplex exam was performed to evaluate for torsion and other vascular conditions. COMPARISON: No relevant prior studies available. FINDINGS: Right testicle: Measures 2.4 x 1.3 x 1.8 cm. No mass. No torsion. Normal Duplex waveforms and color doppler. Left testicle: Measures 2.9 x 1.5 x 1.8 cm. No mass. No torsion. Normal Duplex waveforms and color doppler. Epididymides: Normal. Scrotum: There is a left- sided varicoceles. IMPRESSION: 1. Left-sided varicoceles. 2. Small testicles. at 2118 Reported and signed by: Rupesh Mcadams M.D. CC: Technologist: Sylvia Gonzales RDMS(AB)(OB) Trnnhb Date/Time: 12/09/2022 (2118) [email or web address] Orig Print D/T: S: 12/09/2022 (2119) Probe: PAGE 1 Signed Report- US SCROTUM AND [id number] 00:00[facility]00[facility] 1975 Sex: F Name: JACK PHILLIPS [facility] [place] : 1975 Age/S: 47 / F [address] [place] [address] Unit #: [id number] Loc: BALJIT [place] [address] Phys: Vadim Shah NP Acct: [id number] Dis Date: Status: REG ER PHONE #: [phone] Exam Date: 12/09/2022 2100 FAX #: [phone] Reason: SCROTAL PAIN L > R, going through gender reassi EXAMS: CPT CODE: [id number] US SCROTUM AND CNTS 22128 PROCEDURE INFORMATION: Exam: US Scrotum and Artery or Vein of the Abdominal and/or Reproductive Organs, Limited Scrotum Exam date and time: 12/09/2022 8:36 PM Age: 47 years old Clinical indication: Other: Testicular pain; Scrotumpain; Additional info: Scrotal pain L > R, going through gender reassignment TECHNIQUE: Imaging protocol: Real-time ultrasound of the scrotum. Real-time duplex ultrasound scan of the arterial or venous flow with murphy scale, color Doppler flow and spectral waveform analysis with image documentation. Limited Duplex exam focused of the scrotum. Duplex exam was performed to evaluate for torsion and other vascular conditions. COMPARISON: No relevant prior studies available. FINDINGS: Right testicle: Measures 2.4 x 1.3 x 1.8 cm. No mass. No torsion. Normal Duplex waveforms and color doppler. Left testicle: Measures 2.9 x 1.5 x 1.8 cm. No mass. No torsion. Normal Duplex waveforms and color doppler. Epididymides: Normal. Scrotum: There is a left-sided varicoceles. IMPRESSION: 1. Left-sided varicoceles. 2. Small testicles. at 2118 Reported and signed by: Rupesh Mcadams M.D. CC: Vadim Shah NP Technologist: Sylvia Gonzales RDMS()(OB) Trnscb Date/Time: 12/09/2022 (2118) [email or web address] Orig Print D/T: S: 12/09/2022 (2118) Probe: PAGE 1 Signed ReportTESTOSTERONE, FREE AND [id number] 05:33:51 Test Item Value Reference Range Interpretation Comments TESTOST (test code = 5 ng/dL INTERPR ETIVE 2986-8) INFORMATION: Testosterone by Immunoassay Brittaney tosterone immunoassays ar e both imprecise and i naccurate at low testoste jesus concentrations, such as those found in children and cisgender f emales. For these indiv iduals, testing by mass spectrometry is recommended; re jae to Testosterone (A dult Females, Childr en, or Individuals on Testosterone-Busch ppressing Hormone Therapy ) ([employer] test code 38735 58). Free or bioavailable testosterone measurements ma y provide supportive info rmation. For individuals on testosterone ho rmone therapy, refer to cisgender male reference intervals. No r eference intervals have been established for males younger than 14 years or for cisgender f emales. For a complete set of all established reference inter vals, refer to Funding Profiles /Tests/Pu b/1318923. Sex Hormone Binding 46 nmol/L 25-122 REFERENC E INTERVAL: Sex Globulin (test code Hormone Binding Globulin = 36427-6) Access complete set of age- and/or gender-specific reference inter vals for this test in [facility] Test Directory ([employer]). FREE TESTO (test 1 pg/mL INTERPRETIV E code = 2991-8) INFORMATION: ?Testosterone, Free Calculation Yoni e testosterone concentration i s calculated usin g total testosterone (m easured by immunoassay) and the binding constan t of testosterone an d sex hormone-binding globulin (SHBG). Testost erone immunoassays ar e both imprecise and i naccurate at low testoste jesus concentrations, such as those found in children and cisgender f emales. For these indiv iduals, testing by mass spectrometry is recommended; re jae to Testosterone, F ree (Adult Females, Children, or In dividuals on Testosterone-Busch ppressing Hormone Therapy ) ([employer] test code 40859 59). For individuals on testosterone ho rmone therapy, refer to cisgender male reference intervals. No r eference intervals have been established for males younger than 14 years or for cisgender f emales. For a complete set of all established reference inter vals, refer to Funding Profiles /Tests/Pu b/2207342. %FREE TEST (test 1.4 % Performed B y: [facility] code = 41234-4) [address] [id number] Director: Joseph Coleman MD, PhD [facility], [facility] AND [id number] 05:33:51 Test Item Value Reference Range Interpretation Comments TESTOST (test code = 5 ng/dL INTERPR ETIVE 2986-8) INFORMATION: Testosterone by Immunoassay Brittaney tosterone immunoassays ar e both imprecise and i naccurate at low testoste jesus concentrations, such as those found in children and cisgender f emales. For these indiv iduals, testing by mass spectrometry is recommended; re jae to Testosterone (A dult Females, Childr en, or Individuals on Testosterone-Busch ppressing Hormone Therapy ) (MTKeyVive test code 40661 58). Free or bioavailable testosterone measurements ma y provide supportive info rmation. For individuals on testosterone ho rmone therapy, refer to cisgender male reference intervals. No r eference intervals have been established for males younger than 14 years or for cisgender f emales. For a complete set of all established reference inter vals, refer to Funding Profiles /Tests/Pu b/3515468. Sex Hormone Binding 46 nmol/L 25-122 REFERENC E INTERVAL: Sex Globulin (test code Hormone Binding Globulin = 64919-3) Access complete set of age- and/or gender-specific reference inter vals for this test in [facility] Test Directory ([employer]). FREE TESTO (test 1 pg/mL INTERPRETIV E code = 2991-8) INFORMATION: ?Testosterone, Free Calculation Yoni e testosterone concentration i s calculated usin g total testosterone (m easured by immunoassay) and the binding constan t of testosterone an d sex hormone-binding globulin (SHBG). Testost erone immunoassays ar e both imprecise and i naccurate at low testoste jesus concentrations, such as those found in children and cisgender f emales. For these indiv iduals, testing by mass spectrometry is recommended; re jae to Testosterone, F ree (Adult Females, Children, or In dividuals on Testosterone-Busch ppressing Hormone Therapy ) ([employer] test code 36951 59). For individuals on testosterone ho rmone therapy, refer to cisgender male reference intervals. No r eference intervals have been established for males younger than 14 years or for cisgender f emales. For a complete set of all established reference inter vals, refer to Funding Profiles /Tests/Pu b/8106377. %FREE TEST (test 1.4 % Performed B y: ARUP code = 00022-5) Laboratories [address] [place] [id number] Director: Joseph Coleman MD, PhD [facility], [id number] 06:13:15 Test Item Value Reference Range Interpretation Comments E2 (test code = 218 pg/mL 2243-4) CLAUDIO (test code = Estradiol Reference CLAUDIO) Ranges: Non Females: Early Follicular 22.4 - 115 Mid Follicular 25 - 115 Ovulatory Peak 32.1 - 517 Mid Luteal 36.5 - 246 Post Menopausal Female : Not on Hormone therapy <15 - 25.1 Males: ?>=19 years old <15 - 31.5 ?Pediatric: ? Pediatric male and female <15 - 38.2 Pre-Puberty female <15 - 16 Puberty female 36.5 - 196 Pre-Puberty male <15 Puberty male 19.5 - 34.8 [facility], [id number] 06:13:15 Test Item Value Reference Range Interpretation Comments PROGEST (test code = 4.72 ng/mL 8702024468) CLAUDIO (test code = Normal ranges for CLAUDIO) Progesterone Proliferative: ? ? 0.3 1.5 ng/mLLuteal: ?5.1 18.5 ng/mL [facility], [id number] 06:13:15 Test Item Value Reference Range Interpretation Comments E2 (test code = 218 pg/mL 2243-4) CLAUDIO (test code = Estradiol Reference CLAUDIO) Ranges: Non Females: Early Follicular 22.4 - 115 Mid Follicular 25 - 115 Ovulatory Peak 32.1 - 517 Mid Luteal 36.5 - 246 Post Menopausal Female : Not on Hormone therapy <15 - 25.1 Males: ?>=19 years old <15 - 31.5 ?Pediatric: ? Pediatric male and female <15 - 38.2 Pre-Puberty female <15 - 16 Puberty female 36.5 - 196 Pre-Puberty male <15 Puberty male 19.5 - 34.8 [facility] [id number] 06:13:15 Test Item Value Reference Range Interpretation Comments PROGEST (test code = 4.72 ng/mL 5584258524) CLAUDIO (test code = Normal ranges for CLAUDIO) Progesterone Proliferative: ? ? 0.3 1.5 ng/mLLuteal: ?5.1 18.5 ng/mL [facility] WITH [id number] 04:28:55 Test Item Value Reference Range Interpretation Comments WBC (test code = 13.37 See_Comment H [Automated 6690-2) message] The system which generated this result transmit cristy reference range : 4.30 - 11.10 10*3/?L. The reference range was not used to interpret this result as normal/abnormal . RBC (test code = 4.63 See_Comment [Automated 789-8) message] The system which generated this result transmit cristy reference range : 3.93 - 5.25 10*6/?L. The reference range was not used to interpret this result as normal/abnormal . HGB (test code = 14.0 g/dL 11.6-15.0 718-7) HCT (test code = 42.2 % 35.7-45.2 4544-3) MCV (test code = 91.1 fL 80.6-95.5 787-2) MCH (test code = 30.2 pg 25.9-32.8 785-6) MCHC (test code = 33.2 g/dL 31.6-35.1 786-4) RDW-SD (test code = 41.0 fL 39.0-49.9 68752-6) RDW-CV (test code = 12.4 % 12.0-15.5 788-0) PLT (test code = 217 See_Comment [Automated 777-3) message] The system which generated this result transmit cristy reference range : 166 - 358 10*3/ ?L. The reference range was not u sed to interpret th is result as normal/abnormal . MPV (test code = 12.4 fL 9.5-12.9 40659-0) NRBC/100 WBC (test 0.0 See_Comment [Automat ed code = 4392279270) message] The system which generated this result transmit cristy reference range : 0.0 - 10.0 /100 WBCs. The reference range was not used to interpret this result as normal/abnormal . NRBC x10^3 (test code See_Comment [Auto mated = 9297809218) message] The system which generated this result transmit cristy reference range : 10*3/?L. The reference range was not used to interpret this result as normal/abnormal . GRAN MAT (NEUT) % 75.9 % (test code = 770-8) IMM GRAN % (test code 0.50 % = 9232222624) LYMPH % (test code = 17.9 % 736-9) MONO % (test code = 4.3 % 5905-5) EOS % (test code = 1.0 % 713-8) BASO % (test code = 0.4 % 706-2) GRAN MAT x10^3(ANC) 10.15 10*3/uL 1.88-7.09 H (test code = 8187081797) IMM GRAN x10^3 (test 0.07 10*3/uL 0.00-0.06 H code = 2219928762) LYMPH x10^3 (test code 2.39 10*3/uL 1.32-3.29 = 731-0) MONO x10^3 (test code 0.57 10*3/uL 0.33-0.92 = 742-7) EOS x10^3 (test code = 0.14 10*3/uL 0.03-0.39 711-2) BASO x10^3 (test code 0.05 10*3/uL 0.01-0.07 = 704-7) Lab Interpretation Abnormal (test code = 42523-5) [facility] acute hospital WITH [id number] 04:28:55 Test Item Value Reference Range Interpretation Comments WBC (test code = 13.37 See_Comment H [Automated 9890-2) message] The system which generated this result transmit cristy reference range : 4.30 - 11.10 10*3/?L. The reference range was not used to interpret this result as normal/abnormal . RBC (test code = 4.63 See_Comment [Automated 844-8) message] The system which generated this result transmit cristy reference range : 3.93 - 5.25 10*6/?L. The reference range was not used to interpret this result as normal/abnormal . HGB (test code = 14.0 g/dL 11.6-15.0 718-7) HCT (test code = 42.2 % 35.7-45.2 4544-3) MCV (test code = 91.1 fL 80.6-95.5 787-2) MCH (test code = 30.2 pg 25.9-32.8 785-6) MCHC (test code = 33.2 g/dL 31.6-35.1 786-4) RDW-SD (test code = 41.0 fL 39.0-49.9 68492-5) RDW-CV (test code = 12.4 % 12.0-15.5 788-0) PLT (test code = 217 See_Comment [Automated 777-3) message] The system which generated this result transmit cristy reference range : 166 - 358 10*3/ ?L. The reference range was not u sed to interpret th is result as normal/abnormal . MPV (test code = 12.4 fL 9.5-12.9 96601-1) NRBC/100 WBC (test 0.0 See_Comment [Automat ed code = 0932831779) message] The system which generated this result transmit cristy reference range : 0.0 - 10.0 /100 WBCs. The reference range was not used to interpret this result as normal/abnormal . NRBC x10^3 (test code See_Comment [Auto mated = 7567807747) message] The system which generated this result transmit cristy reference range : 10*3/?L. The reference range was not used to interpret this result as normal/abnormal . GRAN MAT (NEUT) % 75.9 % (test code = 770-8) IMM GRAN % (test code 0.50 % = 5848146994) LYMPH % (test code = 17.9 % 736-9) MONO % (test code = 4.3 % 5905-5) EOS % (test code = 1.0 % 713-8) BASO % (test code = 0.4 % 706-2) GRAN MAT x10^3(ANC) 10.15 10*3/uL 1.88-7.09 H (test code = 4874391257) IMM GRAN x10^3 (test 0.07 10*3/uL 0.00-0.06 H code = 2200200557) LYMPH x10^3 (test code 2.39 10*3/uL 1.32-3.29 = 731-0) MONO x10^3 (test code 0.57 10*3/uL 0.33-0.92 = 742-7) EOS x10^3 (test code = 0.14 10*3/uL 0.03-0.39 711-2) BASO x10^3 (test code 0.05 10*3/uL 0.01-0.07 = 704-7) Lab Interpretation Abnormal (test code = 56469-4) [facility] HEMOGLOBIN A1C [id number] 19:36:00 Test Item Value Reference Range Interpretation Comments POCT HBA1C (test code = 4548-4) 7.6 % 4-6 A Lab Interpretation (test code = Abnormal 62156-4) [facility] HEMOGLOBIN A1C [id number] 19:36:00 Test Item Value Reference Range Interpretation Comments POCT HBA1C (test code = 4548-4) 7.6 % 4-6 A Lab Interpretation (test code = Abnormal 52360-0) [facility]
[2022-12-20] MEDS ORDERED: FENTANYL CITR 100 MCG/2 ML ONE (22:44)
[2022-12-20] MEDS ORDERED: NA CHLORIDE 0.9% 1,000 ML ONE (22:44)
[2022-12-20 23:04] LABS: Absolute Lymphocytes (CBC) 1.6 K/uL (0.7-4.9); Lymphocytes % 14.6 % (15.3-44.8); MCV 89.5 fL (80-100); MPV 9.9 fL (7.6-11.3); RBC Red Blood Cell Count 4.25 M/uL (3.86-4.86)
[2022-12-20 23:22] LABS: Albumin 3.6 g/dL (3.4-5.0); Bilirubin Total 0.2 mg/dL (0.2-1.0); Potassium 4.3 mmol/L (3.5-5.1); Protein, Total 6.9 g/dL (6.4-8.2)
[2022-12-21 00:14] LABS: Urine Blood Negative (Negative); Urine Glucose 3+ (Negative); Urine Protein Negative (Negative); Urine Specific Gravity 1.015 (1.005-1.030)
[2022-12-21 00:42] LABS: Urine Bacteria None Seen /HPF (<20); Urine Mucus Slight /HPF (None Seen); Urine RBC <5 /HPF (None Seen)
--- NOTE | 2022-12-21 01:40 | ER ---
Nurse's Notes [facility] Name: Radha Phillips Age: 47 yrs Sex: Female : 1975 Arrival Date: 12/20/2022 Time: 21:30 Bed 13 Private MD: Diagnosis: Epididymitis-left Presentation: 12/20 21:40 Chief complaint: Patient states: i need a urology consult. 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 possible cyst or tumor as well. Coronavirus screen: Client denies travel out of the [place] in the last 14 days. At this time, the client does not indicate any symptoms associated with coronavirus-19. Ebola Screen: No symptoms or risks identified at this time. Initial Sepsis Screen: Does the patient meet any 2 criteria? No. Patient's initial sepsis screen is negative. Does the patient have a suspected source of infection? No. Patient's initial sepsis screen is negative. Risk Assessment: Do you want to hurt yourself or someone else? Patient reports no desire to harm self or others. Onset of symptoms is unknown. 21:40 Method Of Arrival: Ambulatory lg3 21:40 Acuity: CLAUDIA 3 lg3 Triage Assessment: 21:46 General: Appears in no apparent distress. comfortable, Behavior is calm, cooperative. lg3 Pain: Complains of pain in testicle. EENT: No deficits noted. No signs and/or symptoms were reported regarding the EENT system. Neuro: No deficits noted. Treviño Agitation-Sedation Scale (RASS): 0 - Alert and Calm Level of Consciousness is awake, alert, obeys commands, Oriented to person, place, time, situation. Cardiovascular: No deficits noted. Denies chest pain, shortness of breath, Capillary refill < 3 seconds Clubbing of nail beds is absent JVD is absent Patient's skin is warm and dry. Respiratory: No deficits noted. Airway is patent Respiratory effort is even, unlabored, Respiratory pattern is regular, symmetrical. GI: No deficits noted. No signs and/or symptoms were reported involving the gastrointestinal system. Abdomen is round non-distended. : No deficits noted. No signs and/or symptoms were reported regarding the genitourinary system. Derm: Reports increased pain. Musculoskeletal: No deficits noted. No signs and/or symptoms reported regarding the musculoskeletal system. Circulation, motion, and sensation intact. Range of motion: intact in all extremities. 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 - Social history:: Smoking status: Patient denies any tobacco usage or history of. Patient uses alcohol, occasionally. street drugs, marijuana. Screenin:00 Abuse screen: Denies threats or abuse. Denies injuries from another. Nutritional ha1 screening: No deficits noted. Tuberculosis screening: No symptoms or risk factors identified. Assessment: 22:00 General: Appears comfortable, Behavior is calm, cooperative. Pain: Complains of pain in ha1 scrotum Pain does not radiate. Neuro: Level of Consciousness is awake, alert, obeys commands, Oriented to person, place, time, situation. Cardiovascular: Patient's skin is warm and dry. Respiratory: Airway is patent Respiratory effort is even, unlabored, Respiratory pattern is regular, symmetrical. GI: No signs and/or symptoms were reported involving the gastrointestinal system. Abdomen is flat, non-distended. : Reports pain scrotum. EENT: No signs and/or symptoms were reported regarding the EENT system. Derm: Skin is pink, warm \T\ dry. Musculoskeletal: Circulation, motion, and sensation intact. Range of motion: intact in all extremities. 23:00 Reassessment: Patient and/or family updated on plan of care and expected duration. Pain ha1 level reassessed. Patient is alert, oriented x 3, equal unlabored respirations, skin warm/dry/pink. /04 00:00 Reassessment: Patient and/or family updated on plan of care and expected duration. Pain ha1 level reassessed. Patient is alert, oriented x 3, equal unlabored respirations, skin warm/dry/pink. 01:00 Reassessment: Patient and/or family updated on plan of care and expected duration. Pain ha1 level reassessed. Patient is alert, oriented x 3, equal unlabored respirations, skin warm/dry/pink. 02:00 Reassessment: Patient and/or family updated on plan of care and expected duration. Pain ha1 level reassessed. Patient is alert, oriented x 3, equal unlabored respirations, skin warm/dry/pink. Vital Signs: 12/20 21:40 BP 124 / 94; Pulse 90; Resp 17 S; Temp 99.3(O); Pulse Ox 100% on R/A; Weight 82.55 kg lg3 (R); Height 5 ft. 7 in. (170.18 cm) (R); Pain 9/10; 22:00 BP 116 / 77; Pulse 72; Resp 16 S; Pulse Ox 99% on R/A; ha1 23:00 BP 114 / 75; Pulse 72; Resp 15 S; Pulse Ox 100% on R/A; ha1 12/21 00:00 BP 127 / 80; Pulse 71; Resp 16 S; Pulse Ox 100% ; ha1 01:00 BP 106 / 66; Pulse 74; Resp 18 S; Pulse Ox 99% on R/A; ha1 12/20 21:40 Body Mass Index 28.50 (82.55 kg, 170.18 cm) lg3 ED Course: 12/20 21:30 Patient arrived in ED. jj6 21:31 Leobardo Hutchison PA is PHCP. cp 21:31 Andrews Hathaway MD is Attending Physician. cp 21:46 Triage completed. lg3 21:46 Arm band placed on left wrist. lg3 22:00 Patient has correct armband on for positive identification. Bed in low position. Call ha1 light in reach. Side rails up X 1. 22:32 Effie Agudelo RN is Primary Nurse. ha1 22:41 Inserted saline lock: 22 gauge in right wrist, using aseptic technique. ke1 23:01 Urine Microscopic Only Sent. ha1 23:01 Lipase Sent. ha1 23:01 CMP Sent. ha1 23:01 CBC with Diff Sent. ha1 12/21 01:38 Alex Mejia MD is Referral Physician. cp 02:14 No provider procedures requiring assistance completed. IV discontinued, intact, ha1 bleeding controlled, No redness/swelling at site. Pressure dressing applied. Administered Medications: 12/20 22:45 Drug: NS 0.9% 1000 ml Route: IV; Rate: 1 bolus; Site: right forearm; ha1 22:45 Drug: fentaNYL (PF) 25 mcg Route: IVP; Site: right forearm; ha1 23:00 Follow up: Response: No adverse reaction; Pain is decreased; RASS: Alert and Calm (0) ha1 12/21 01:50 Drug: Ketorolac 30 mg Route: IVP; Site: right forearm; ha1 01:50 Drug: Doxycycline 100 mg Route: PO; ha1 01:53 Drug: Rocephin (cefTRIAXone) 1 grams Route: IV; Rate: calculated rate; Site: right ha1 forearm; Medication: 02:14 VIS not applicable for this client. ha1 Outcome: 01:40 Discharge ordered by MD. cp 02:14 Condition: stable ha1 02:14 Discharged to home ambulatory. ha1 02:14 Discharge instructions given to patient, Instructed on discharge instructions, follow up and referral plans. medication usage, Demonstrated understanding of instructions, follow-up care, medications, Prescriptions given X 2. 02:17 Patient left the ED. ha1 Signatures: Leobardo Hutchison PA PA cp Keshia Hurt RN RN lg3 Rekha Dubon jj6 Luzmaria Ho RN RN ke1 Effie Agudelo RN RN ha1 Corrections: (The following items were deleted from the chart) 02:04 01:50 Rocephin (cefTRIAXone) 1 grams IV at calculated rate in right forearm ha1 ha1
--- NOTE | 2022-12-21 01:41 | EDPHYS ---
Physician Documentation [facility] Name: Radha Phillips Age: 47 yrs Sex: Female : 1975 Arrival Date: 12/20/2022 Time: 21:30 Bed 13 Private MD: ED Physician Andrews Hathaway HPI: 12/20 22:25 This 47 yrs old Female presents to ER via Ambulatory with complaints of Pelvic Pain. cp 22:25 Associated signs and symptoms: Pertinent positives: testicular pain. cp 22:25 Patient is a 47-year-old male who identifies as a female is currently being treated cp with hormone therapy. Patient reports increasing pain to the testicle. Patient reports recent admission and discharge from [facility] in [place] in which he was told he may have a testicular mass or tumor Patient presents with increasing pain. Patient denies any penile discharge and/or urinary symptoms. GI PHYSICIAN: 21:46 LMP N/A - male anatomy lg3 Historical: - Allergies: 21:46 Codeine; lg3 - Home Meds: 21:46 progesterone micronized 100 mg oral cap once daily [Active]; spironolactone 100 mg Oral lg3 tab 1 tab once daily [Active]; estradiol patch [Active]; metformin 1,000 mg Oral tr24 1 tab 2 times per day [Active]; - PMHx: 21:46 Diabetes mellitus; lg3 - PSHx: 21:46 left shoulder; Vasectomy; Tonsillectomy; lg3 - Immunization history:: Adult Immunizations up to date, Client reports receiving the 2nd dose of the Covid vaccine, Flu vaccine is up to date. - Social history:: Smoking status: Patient denies any tobacco usage or history of. Patient uses alcohol, occasionally. street drugs, marijuana. ROS: 22:30 Constitutional: Negative for body aches, chills, fever, poor PO intake. cp 22:30 Eyes: Negative for injury, pain, redness, and discharge. cp 22:30 ENT: Negative for drainage from ear(s), ear pain, sore throat, difficulty swallowing, difficulty handling secretions. 22:30 Cardiovascular: Negative for chest pain, palpitations. 22:30 Respiratory: Negative for cough, shortness of breath, wheezing. 22:30 Abdomen/GI: Negative for abdominal pain, vomiting, diarrhea, constipation. 22:30 Back: Negative for pain at rest, pain with movement. 22:30 : Positive for testicular pain Negative for urinary symptoms. 22:30 Skin: Negative for rash. 22:30 Neuro: Negative for altered mental status, dizziness, headache, weakness. 22:30 All other systems are negative. Exam: 22:35 Constitutional: The patient appears in no acute distress, alert, awake, non-toxic, well cp developed, well nourished, uncomfortable. 22:35 Head/Face: Normocephalic, atraumatic. cp 22:35 Eyes: Periorbital structures: appear normal, Conjunctiva: normal, no exudate, no injection, Sclera: no appreciated abnormality, Lids and lashes: appear normal, bilaterally. 22:35 ENT: External ear(s): are unremarkable, Nose: is normal, Mouth: Lips: moist, Oral mucosa: moist, Posterior pharynx: is normal, airway is patent, no erythema, no exudate. 22:35 Chest/axilla: Inspection: normal. 22:35 Cardiovascular: Rate: normal, Rhythm: regular. 22:35 Respiratory: the patient does not display signs of respiratory distress, Respirations: normal, no use of accessory muscles, no retractions, labored breathing, is not present. 22:35 Abdomen/GI: Inspection: abdomen appears normal, Bowel sounds: active, all quadrants, Palpation: abdomen is soft and non-tender, in all quadrants. 22:35 : exam of testicles negative for masses, tender to palpation right testicle, no swelling and scrotal skin w/o erythema. Vital Signs: 21:40 BP 124 / 94; Pulse 90; Resp 17 S; Temp 99.3(O); Pulse Ox 100% on R/A; Weight 82.55 kg lg3 (R); Height 5 ft. 7 in. (170.18 cm) (R); Pain 9/10; 22:00 BP 116 / 77; Pulse 72; Resp 16 S; Pulse Ox 99% on R/A; ha1 23:00 BP 114 / 75; Pulse 72; Resp 15 S; Pulse Ox 100% on R/A; ha1 03/04 00:00 BP 127 / 80; Pulse 71; Resp 16 S; Pulse Ox 100% ; ha1 01:00 BP 106 / 66; Pulse 74; Resp 18 S; Pulse Ox 99% on R/A; ha1 12/20 21:40 Body Mass Index 28.50 (82.55 kg, 170.18 cm) lg3 MDM: 12/20 22:01 Patient medically screened. cp 23:00 Differential diagnosis: UTI, prostatitis, urethritis, testicular torsion, testicular cp mass, epididymitis, orchitis. 12/21 01:40 Data reviewed: vital signs, nurses notes, lab test result(s), radiologic studies, CT cp scan, ultrasound. 01:40 Consideration of Admission/Observation Escalation of care including cp admission/observation considered. I considered the following discharge prescriptions or medication management in the emergency department Medications were administered in the Emergency Department. See MAR. Counseling: I had a detailed discussion with the patient and/or guardian regarding: the historical points, exam findings, and any diagnostic results supporting the discharge/admit diagnosis, lab results, radiology results, the need for outpatient follow up, for definitive care, a urologist, to return to the emergency department if symptoms worsen or persist or if there are any questions or concerns that arise at home. Response to treatment: the patient's symptoms have mildly improved after treatment, and as a result, I will discharge patient. 12/20 22:23 Order name: Urine Microscopic Only 12/20 22:23 Order name: Urine Dipstick-Ancillary (obtain specimen); Complete Time: 00:15 cp 12/20 22:23 Order name: CBC with Diff cp 12/20 22:23 Order name: CMP cp 12/20 22:23 Order name: Lipase cp 12/20 22:23 Order name: IV Saline Lock; Complete Time: 23:01 cp 12/20 22:23 Order name: Labs collected and sent; Complete Time: 23:01 cp 12/20 22:23 Order name: US Scrotum Testicles cp 12/20 22:23 Order name: CT Abd/Pelvis - IV Contrast Only cp 12/20 23:05 Order name: CBC with Automated Diff; Complete Time: 01:23 EDMS 12/21 01:23 Interpretation: Normal except: WBC 11.10; ANANTH% 78.6; LYM% 14.6; NEUT A 8.7. cp 12/20 23:22 Order name: Comprehensive Metabolic Panel; Complete Time: :23 EDMS 12/21 01:23 Interpretation: NA 135; GLUC 278; CRE 1.25; GFR 53; AST 7. cp 12/20 23:22 Order name: Lipase; Complete Time: : EDMS 12/21 00:15 Order name: Urine Dipstick-Ancillary; Complete Time: EDMS 12/21 01:23 Interpretation: Abnormal: UGLUC 3+. cp 12/21 00:42 Order name: Urine Microscopic Only; Complete Time: EDMS 12/21 01:24 Interpretation: Reviewed. cp Administered Medications: 12/20 22:45 Drug: NS 0.9% 1000 ml Route: IV; Rate: 1 bolus; Site: right forearm; [facility] 22:45 Drug: fentaNYL (PF) 25 mcg Route: IVP; Site: right forearm; [facility] 23:00 Follow up: Response: No adverse reaction; Pain is decreased; RASS: Alert and Calm (0) [facility] 12/21 01:50 Drug: Ketorolac 30 mg Route: IVP; Site: right forearm; [facility] 01:50 Drug: Doxycycline 100 mg Route: PO; [facility] 01:53 Drug: Rocephin (cefTRIAXone) 1 grams Route: IV; Rate: calculated rate; Site: right ha1 forearm; Disposition Summary: 12/21/22 01:40 Discharge Ordered Location: Home cp Problem: an ongoing problem cp Symptoms: have improved cp Condition: Stable cp Diagnosis - Epididymitis - left cp Followup: cp - With: Alex Mejia MD - When: 1 week - Reason: Recheck today's complaints Discharge Instructions: - Discharge Summary Sheet cp - Epididymitis cp - Testicular Self-Exam cp Forms: - Medication Reconciliation Form cp - Thank You Letter cp - Antibiotic Education cp - Prescription Opioid Use cp - Work release form [facility] Prescriptions: - Doxycycline Hyclate 100 mg Oral Tablet - take 1 tablet by ORAL route every 12 hours; 20 tablet; Refills: 0, Product cp Selection Permitted - Diclofenac Sodium 75 mg Oral Tablet Sustained Release - take 1 tablet by ORAL route 2 times per day; 30 tablet; Refills: 0, Product cp Selection Permitted Addendum: 12/23/2022 02:28 Co-signature as Attending Physician, Andrews Hathaway MD I agree with the assessment s p4 and plan of care. I reviewed the patient's care provided by the Advanced Practice Provider and agree with the diagnosis and treatment plan. Signatures: Dispatcher [employer] EDNE Leobardo Hutchison, PA PA cp Hurt, Keshia, RN RN lg3 Effie Agudelo RN RN ha1 Andrews Hathaway MD MD sp4
[2022-12-21] MEDS ORDERED: CEFTRIAXONE 1000 MG/VIAL ONE (01:56)
[2022-12-21] MEDS ORDERED: KETOROLAC 30 MG/ML INJ ONE (01:57)
[2022-12-21] MEDS ORDERED: NA CHLORIDE 0.9% 50 ML ONE (01:57)
[2022-12-21] MEDS ORDERED: DOXYCYCLINE 100 MG CAP PO ONE (01:57)
[2022-12-21 02:40] VITALS: TEMP 99.3
[2022-12-21 02:47] VITALS: O2SAT 100
[2022-12-21 02:48] VITALS: BP 127/80
--- NOTE | 2022-12-21 15:39 | RAD REPORT ---
EXAM DESCRIPTION: CT - Abdomen Pelvis W Contrast - 12/21/2022 6:15 am CLINICAL HISTORY: Pelvic pain. TECHNIQUE: CT scan of the abdomen and pelvis was performed with intravenous contrast. 5 mm axial shane ges were obtained along with coronal and sagittal reformatted images. COMPARISON: None. DOSE OPTIMIZATION: This facility uses dose optimization techniques as appropriate to perform exams, including at least one of the following techniques: 1. Automated exposure control. 2. Adjustment of the mA and/or kV according to patient size (this includes techniques or standardized protocols for targeted exams where dose is matched to the indication/reason for exam, i.e. extremiti es or head). 3. Use of iterative reconstructive technique. FINDINGS: Lung Bases: No active disease. Liver: Normal. Spleen: Normal. Pancreas: Normal. Gallbladder: Normal. Adrenal Glands: Normal. Kidneys: There are multiple small nonobstructing medullary stones bilaterally. There is no evidence of obstructive uropathy. Retroperitoneal Structures: There is mild atherosclerotic disease about the abdominal aorta. Bowel Survey: The stomach is unremarkable. The small bowel is unremarkable. The appendix is unremarkable. There is increased stool identified throughout the colon. Uterus and Adnexa: The uterus and ovaries are absent. Urinary Bladder: Normal. Peritoneal Cavity: Normal. Mesenteric Structures: Normal. Abdominal Wall: No hernia. Bony Structures: No suspicious lesions. There is severe facet arthropathy bilaterally at L5-S1. IMPRESSION: 1. Increased stool throughout the colon. 2. Bilateral nephrolithiasis. 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 The interpreting radiologist is fully responsible for the content of the report.
--- NOTE | 2022-12-21 15:40 | RAD REPORT ---
EXAM DESCRIPTION: US - Scrotum Testicles - 12/21/2022 12:38 am CLINICAL HISTORY: Testicular pain; [facility] MAIN TECHNIQUE: Gonzalez-scale, color, and spectral Doppler images were obtained of the testes and scrotum. COMPARISON: None Measurements: Right testicle: 2.8 x 1.5 x 2.3 cm for a volume of 5.1 mL. Left testicle: 2.6 x 1.7 x 2.0 cm for a volume of 4.6 mL. FINDINGS: Right testicle: Testicular echogenicity is normal with no focal lesion. Testicular vascular flow is normal. Right epididymis: The epididymis appears unremarkable.. No hydrocele Left testicle: Testicular echogenicity is normal with no focal lesion. Testicular vascular flow is normal. Left epididymis: There is moderate enlargement and edema about the body and tail of the epididymis. T here is no evidence of hyperemia.. These findings may represent changes of chronic epididymitis. No hydrocele There is a small left varicocele. IMPRESSION: 1. No evidence of testicular edema or torsion 2. Small left varicocele. 3. Findings suggestive of chronic epididymitis on the left.. Electronically signed by: Santhosh Prajapati MD 12/21/2022 12:58 AM MEDICAL OPERATIONS SUPERVISOR Due to temporary technical issues with the PACS/Fluency reporting system, reports are being signed by the in house radiologists without review as a courtesy to insure prompt reporting. The interpreting radiologist is fully responsible for the content of the report.
== END 2022-12-21 02:17 | disposition home or self-care (01) ==
LOC: ER 21:23
DX: N45.1 Epididymitis (principal); Z88.5 Allergy status to narcotic agent
CPT/HCPCS: 85025; 36415; 83690; 80053; 74177; 76870; 96375; 96374; 99284; Q9967; J3010; J7030; 81003; 81015; J0696

== ENCOUNTER → 2023-11-05 | Emergency (ER) | payer OTHER ==
[~2023-11-05] MED LIST: TDAP (DIPHTH,PERTUSS(ACELL),TET VAC) 0.5 ML VIAL IMVAC ONE
--- NOTE | 2023-11-06 00:15 | ER ---
Nurse's Notes [facility] Name: Radha Phillips Age: 48 yrs Sex: Female : 1975 Arrival Date: 11/05/2023 Time: 23:13 Bed 7 Private MD: Diagnosis: Pain in right knee;Pain in right hip Presentation: 11/05 23:25 Chief complaint: Patient states: right knee pain after a fall; denies LOC or head km8 injury. Coronavirus screen: Client denies travel out of the [place] in the last 14 days. Ebola Screen: No symptoms or risks identified at this time. Initial Sepsis Screen: Does the patient meet any 2 criteria? No. Patient's initial sepsis screen is negative. Does the patient have a suspected source of infection? No. Patient's initial sepsis screen is negative. Risk Assessment: Do you want to hurt yourself or someone else? Patient reports no desire to harm self or others. Onset of symptoms was November 05, 2023. 23:25 Method Of Arrival: Wheelchair km8 23:25 Acuity: CLAUDIA 4 km8 Triage Assessment: 23:25 General: Appears in no apparent distress. comfortable, Behavior is calm, cooperative, km8 appropriate for age. Pain: Complains of pain in right knee. EENT: No signs and/or symptoms were reported regarding the EENT system. Neuro: Level of Consciousness is awake, alert, obeys commands, Oriented to person, place, time, situation. Cardiovascular: Denies chest pain, shortness of breath, Capillary refill < 3 seconds Patient's skin is warm and dry. Respiratory: Airway is patent Respiratory effort is even, unlabored, Respiratory pattern is regular, symmetrical. GI: No signs and/or symptoms were reported involving the gastrointestinal system. : No signs and/or symptoms were reported regarding the genitourinary system. Derm: Skin is intact, is healthy with good turgor, Skin is dry, Skin is pink, warm \T\ dry. normal, Skin temperature is warm Wound noted left hand Wound is abrasion. Musculoskeletal: Circulation, motion, and sensation intact. Range of motion: limited in right knee Reports pain in right knee. 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/A - , Not km8 Historical: - Allergies: 23:29 Codeine; km8 - Home Meds: 23:29 metformin 1 Oral tr24 1 tab 2 times per day [Active]; spironolactone 100 mg Oral tab 1 km8 tab once daily [Active]; progesterone micronized 100 mg Oral cap once daily [Active]; emtricitabine-tenofovir (TDF) 200-300 mg oral tablet 1 tab every morning [Active]; biotin 10,000 mcg oral capsule [Active]; Estradiol Patch [Active]; - PMHx: 23:29 diabetes mellitus; km8 - PSHx: 23:29 left shoulder; Tonsillectomy; Vasectomy; km8 - Immunization history:: Client reports receiving the 2nd dose of the Covid vaccine, Last tetanus immunization: < 10 years ago Flu vaccine is not up to date. - Social history:: Smoking status: Reported history of juuling and/or vaping. Patient uses alcohol, but reports only rare drinking. street drugs, marijuana. Screenin/18 00:30 [facility] ED Fall Risk Assessment (Adult) History of falling in the last 3 months, jb4 including since admission No falls in past 3 months (0 pts) Confusion or Disorientation No (0 pts). Abuse screen: Denies threats or abuse. Nutritional screening: No deficits noted. Tuberculosis screening: No symptoms or risk factors identified. Assessment: 00:09 Reassessment: see triage note. jb4 Vital Signs: 11/05 23:25 BP 131 / 77; Pulse 78; Resp 16; Pulse Ox 100% on R/A; km8 ED Course: 23:16 Patient arrived in ED. gm2 23:16 Avinash Wall MD is Attending Physician. ec2 23:25 Arm band placed on right wrist. km8 23:26 Triage completed. 8 11/06 00:00 Knee Right 3 View XRAY In Process Unspecified. EDMS 00:00 Pelvis XRAY In Process Unspecified. EDMS 00:30 Patient has correct armband on for positive identification. Bed in low position. Call jb4 light in reach. Side rails up X 1. 00:30 No provider procedures requiring assistance completed. Patient did not have IV access jb4 during this emergency room visit. Administered Medications: 00:09 Drug: Boostrix Tdap IM 0.5 ml IM once; as a single dose Route: IM; Site: right deltoid; jb4 Outcome: 00:14 Discharge ordered by . ec2 00:30 Discharged to home ambulatory, jb4 00:30 Condition: stable 00:30 Discharge instructions given to patient, Instructed on discharge instructions, follow up and referral plans. Demonstrated understanding of instructions, follow-up care, 00:34 Patient left the ED. jb4 Signatures: Dispatcher [employer] Garland Mccann, RN RN jb4 Avinash Wall MD MD ec2 Anisha Gonzalez 2 Enriqueta Méndez RN RN km8
--- NOTE | 2023-11-06 00:15 | EDPHYS ---
Physician Documentation [facility] Name: Radha Phillips Age: 48 yrs Sex: Female : 1975 Arrival Date: 11/05/2023 Time: 23:13 Bed 7 Private MD: ED Physician Avinash Wall HPI: 11/05 23:28 This 48 yrs old Female presents to ER via Wheelchair with complaints of Fall ec2 Injury, Knee Injury. 23:28 Patient arrives today for evaluation after ground-level fall. States that she was ec2 walking subsequently tripped and fell landed on her right knee. Reports that she also sustained an abrasion to the left hand. Denies any LOC, denies head pain, denies blood thinners. States that she has been ambulatory however is still having pain in the right knee.. 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 N/A - , Not km8 Historical: - Allergies: 23:29 Codeine; km8 - Home Meds: 23:29 metformin 1 Oral tr24 1 tab 2 times per day [Active]; spironolactone 100 mg Oral tab 1 km8 tab once daily [Active]; progesterone micronized 100 mg Oral cap once daily [Active]; emtricitabine-tenofovir (TDF) 200-300 mg oral tablet 1 tab every morning [Active]; biotin 10,000 mcg oral capsule [Active]; Estradiol Patch [Active]; - PMHx: 23:29 diabetes mellitus; km8 - PSHx: 23:29 left shoulder; Tonsillectomy; Vasectomy; km8 - Immunization history:: Client reports receiving the 2nd dose of the Covid vaccine, Last tetanus immunization: < 10 years ago Flu vaccine is not up to date. - Social history:: Smoking status: Reported history of juuling and/or vaping. Patient uses alcohol, but reports only rare drinking. street drugs, marijuana. ROS: 23:28 Constitutional: as per hpi ec2 Exam: 23:28 Constitutional: GEN: NAD Head: atraumatic Eyes: EOMI Ears: External ears are ec2 normal. CV: regular rate LUNGS: no respiratory distress ABD: non-distended SKIN: no evidence of rashes MSK: no evidence of trauma right knee with TTP, good range of motion, abrasion noted to the left hand, no deformity present. NEURO: moves all extremities equally Vital Signs: 23:25 BP 131 / 77; Pulse 78; Resp 16; Pulse Ox 100% on R/A; km8 MDM: 23:20 Patient medically screened. ec2 23:28 Data reviewed: vital signs. ED course: Patient arrives today for evaluation after ec2 ground-level fall. Examination remarkable for MSK findings as noted above. Will obtain radiograph of the right knee, update the patient's tetanus status. Considering bony contusion, bony fracture.. 11/06 00:14 ED course: Knee x-ray and pelvis x-ray showed no bony fracture. Will discharge home. ec2 Return precautions given. Suspect bony contusion.. 11/05 23:28 Order name: Knee Right 3 View XRAY ec2 11/05 23:41 Order name: Pelvis XRAY ec2 Administered Medications: 00:09 Drug: Boostrix Tdap IM 0.5 ml IM once; as a single dose Route: IM; Site: right deltoid; jb4 Disposition Summary: 11/06/23 00:14 Discharge Ordered Notes: Location: Home ec2 Condition: Stable ec2 Diagnosis - Pain in right knee ec2 - Pain in right hip ec2 Followup: ec2 - With: Private Physician - When: - Reason: Recheck today's complaints Discharge Instructions: - Discharge Summary Sheet ec2 - Acute Knee Pain, Adult ec2 Forms: - Medication Reconciliation Form ec2 - Thank You Letter ec2 - Antibiotic Education ec2 - Prescription Opioid Use ec2 - Patient Portal Instructions ec2 - Leadership Thank You Letter ec2 Signatures: Dispatcher [employer] Garland Mccann RN RN jb4 Avinash Wall MD MD ec2 Enriqueta Méndez RN RN km8 Corrections: (The following items were deleted from the chart) 11/05 23:49 23:49 Patient medically screened. ec2 ec2
[2023-11-06 06:50] VITALS: BP 131/77; O2SAT 100
--- NOTE | 2023-11-06 15:04 | RAD REPORT ---
EXAM DESCRIPTION: RAD - Knee Right 3 View - 11/05/2023 11:58 pm CLINICAL HISTORY: 48 years Female knee injury COMPARISON: None TECHNIQUE: 3 images of the right knee were obtained. FINDINGS: No acute fracture seen. Normal bony mineralization. No erosive or lytic lesions seen. No significant joint effusion. IMPRESSION: No acute fracture or dislocation seen. Electronically signed by: Coleen Chambers MD 11/06/2023 12:06 AM CYLINDER DEVALVER Due to temporary technical issues with the PACS/Fluency reporting system, reports are being signed by the in house radiologist without review as a courtesy to ensure prompt reporting. The interpreting r adiologist is fully responsible for the content of the report.
--- NOTE | 2023-11-06 15:05 | RAD REPORT ---
EXAM DESCRIPTION: RAD - Pelvis - 11/05/2023 11:58 pm CLINICAL HISTORY: Injury with pain. TECHNIQUE: Pelvis. COMPARISON: None FINDINGS: There is no fracture or dislocation. The hip joints are unremarkable. The sacroiliac joints are unremarkable. The pubic symphysis is intact. The soft tissues are unremarkable. IMPRESSION: 1. Normal study. Electronically signed by: Santhosh Prajapati MD 11/06/2023 12:06 AM PULP HOUSE SUPERVISOR Due to temporary technical issues with the PACS/Fluency reporting system, reports are being signed by the in house radiologist without review as a courtesy to ensure prompt reporting. The interpreting r adiologist is fully responsible for the content of the report.
== END ==
LOC: ER 23:13
DX: M25.561 Pain in right knee (principal); M25.551 Pain in right hip; E11.9 Type 2 diabetes mellitus without complications; Z88.5 Allergy status to narcotic agent
CPT/HCPCS: 72170

== ENCOUNTER 2024-02-02 22:13 | Emergency (ER) | payer OTHER ==
[2024-02-02] MEDS ORDERED: NA CHLORIDE 0.9% 1,000 ML ONE (23:00)
[2024-02-02 23:39] LABS: Absolute Eosinophils 0.1 K/uL (0-0.5); Absolute Lymphocytes (CBC) 1.9 K/uL (0.7-4.9); Absolute Monocytes 0.5 K/uL (0.1-1.3); Absolute Neutrophil 8.5 K/uL (1.8-8.0); Basophils % 0.4 % (0-1.3); Eosinophils % 1.1 % (0-4.4); Hematocrit 42.4 % (36.0-45.0); Hemoglobin 13.9 g/dL (12.0-15.0); Lymphocytes % 17.5 % (15.3-44.8); MCH 29.8 pg (27.0-35.0); MCHC 32.7 g/dL (32.0-36.0); MCV 90.9 fL (80-100); MPV 10.4 fL (7.6-11.3); Monocytes % 4.1 % (3.3-12.3); Neutrophils % 76.9 % (41.7-73.7); Platelets 248 thou/uL (152-406); RBC Red Blood Cell Count 4.66 M/uL (3.86-4.86)
[2024-02-03 00:03] LABS: Albumin 3.7 g/dL (3.4-5.0); Albumin/Globulin Ratio 1.1 (1.1-1.8); Anion Gap 14.3 mEq/L (5.0-15.0); Bilirubin Total 0.2 mg/dL (0.2-1.0); Globulin 3.4 g/dL (2.3-3.5); Potassium 5.3 mEq/L (3.5-5.1); Protein, Total 7.1 g/dL (6.4-8.2)
[2024-02-03] MEDS ORDERED: INSULIN REGULAR (HUMAN) 100 UNIT/ML ONE (00:35)
--- NOTE | 2024-02-03 01:42 | EDPHYS ---
Physician Documentation [facility] Name: Radha Phillips Age: 48 yrs Sex: Female : 1975 Arrival Date: 02/02/2024 Time: 22:13 Bed 13 Private MD: ED Physician Andrews Hathaway HPI: 02/02 00:50 This 48 yrs old Female presents to ER via Ambulatory with complaints of High Blood kb Sugar, Dizziness, Nausea. 00:50 Pt is a 48 year old female who presents for hyperglycemia. States her sugar has been kb high for one month and her mother made her come in for evaluation today. Reports nausea and dizziness that has been ongoing. Has been taking prescribed medications as directed. Reports latest A1C was 12. 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 - Infectious Disease History:: Denies. - Social history:: Smoking status: Reported history of juuling and/or vaping. ROS: 02/02 00:50 Constitutional: As per HPI kb Exam: 00:50 Constitutional: This is a well developed, well nourished patient who is awake, alert, kb and in no acute distress. Head/Face: Normocephalic, atraumatic. ENT: Moist Mucous membranes Cardiovascular: Regular rate Respiratory: Respirations even and unlabored. No increased work of breathing. Talking in full sentences Abdomen/GI: Soft, non-tender. No distention Skin: Warm, dry with normal turgor. Normal color. MS/ Extremity: Pulses equal, no cyanosis. Neurovascular intact. Full, normal range of motion. Neuro: Awake and alert, GCS 15, oriented to person, place, time, and situation. Moves all extremities. Normal gait. Vital Signs: 02/01 22:50 BP 111 / 66; Pulse 76; Resp 18; Temp 95.8; Pulse Ox 99% on R/A; Weight 77.11 kg; Height cm10 5 ft. 6 in. ; Pain 0/10; 02/02 00:01 BP 111 / 69; Pulse 70; Resp 18; Pulse Ox 100% on R/A; tl4 00:49 BP 107 / 71; Pulse 73; Resp 16; Pulse Ox 100% on R/A; Pain 0/10; pf1 01:30 BP 105 / 69; Pulse 73; Resp 16; Temp 97.9; Pulse Ox 100% on R/A; Pain 0/10; pf1 02/01 22:50 Body Mass Index 27.44 (77.11 kg, 167.64 cm) cm10 02/01 22:50 Pain Scale: Adult cm10 00:49 Pain Scale: Adult pf1 01:30 Pain Scale: Adult pf1 MDM: 02/01 22:17 Patient medically screened. kb 02/02 00:49 Differential diagnosis: DKA, hyperglycemia. Data reviewed: vital signs, nurses notes. kb ED course: corrected sodium for hyperglycemia 132. 01:38 Counseling: I had a detailed discussion with the patient and/or guardian regarding the kb historical points, exam findings, and any diagnostic results supporting the discharge/admit diagnosis, lab results, the need for outpatient follow up, a family practitioner, to return to the emergency department if symptoms worsen or persist or if there are any questions or concerns that arise at home. 02/01 22:46 Order name: CBC with Diff; Complete Time: 00:02 kb 02/01 22:46 Order name: CMP; Complete Time: 00:10 kb 02/01 23:00 Order name: Glucose, Ancillary Testing; Complete Time: 23:01 EDMS 02/02 01:50 Order name: Glucose, Ancillary Testing EDMS 02/01 22:46 Order name: IV Start; Complete Time: 23:17 kb 02/02 01:13 Order name: Blood Glucose Level; Complete Time: 01:41 kb Administered Medications: 02/01 23:16 Drug: NS 0.9% IV 1000 ml IV at 1000 ml once Route: IV; Rate: 1000 ml; Site: left tl4 antecubital; Delivery: Primary tubing; 23:59 Follow up: Response: No adverse reaction; IV Status: Completed infusion; IV Intake: tl4 1000ml 02/02 00:37 Drug: Insulin Regular Human IVP 10 units IVP once {Co-Signature: pf1 (Shania Rm RN).} Route: IVP; Site: right antecubital; 01:51 Follow up: Response: No adverse reaction; Marked relief of symptoms; Blood sugar is pf1 lowered Disposition: 07:12 Co-signature as Attending Physician, Andrews Hathaway MD I agree with the assessment sp4 and plan of care. I reviewed the patient's care provided by the Advanced Practice Provider and agree with the diagnosis and treatment plan. Disposition Summary: 02/03/24 01:41 Discharge Ordered Notes: Location: Home kb Condition: Stable kb Diagnosis - Hyperglycemia, unspecified kb Followup: kb - With: Emergency Department - When: As needed - Reason: Worsening of condition Followup: kb - With: Private Physician - When: 2 - 3 days - Reason: Recheck today's complaints, Continuance of care, Re-evaluation by your physician Discharge Instructions: - Discharge Summary Sheet kb - Hyperglycemia, [id number] kb Forms: - Medication Reconciliation Form kb - Thank You Letter kb - Antibiotic Education kb - Prescription Opioid Use kb - Patient Portal Instructions kb - Leadership Thank You Letter kb Signatures: Dispatcher [employer] EDMS Cecelia Melgoza, VP PRODUCTION-C VP PRODUCTION-Jean-Claude Ivey RN RN rv Potepalov, Sergey, MD MD sp4 Crystal Arthur RN RN cm10 Yossi Randolph RN RN tl4 Shania Rm RN pf1 Shania Rm RN pf1 Corrections: (The following items were deleted from the chart) 02/01 22:47 22:47 CBC+H.LAB.BRZ ordered. EDMS EDMS 22:47 22:47 COMPREHENSIVE METABOLIC PANEL+C.LAB.BRZ ordered. EDMS EDMS
--- NOTE | 2024-02-03 01:42 | ER ---
Nurse's Notes [facility] Name: Radha Phillips Age: 48 yrs Sex: Female : 1975 Arrival Date: 02/02/2024 Time: 22:13 Bed 13 Private MD: Diagnosis: Hyperglycemia, unspecified Presentation: 02/01 22:50 Chief complaint: Patient states: Blood sugar has been elevated X1 month. Pt states that cm10 her BGL tonight was 564. Pt reports dizziness and nausea. BGL in triage reads "HI". Coronavirus screen: Vaccine status: Patient reports receiving the 2nd dose of the covid vaccine. Client denies travel out of the [place] in the last 14 days. At this time, the client does not indicate any symptoms associated with coronavirus-19. Ebola Screen: Patient denies travel to an Ebola-affected area in the 21 days before illness onset. No symptoms or risks identified at this time. Initial Sepsis Screen: Does the patient meet any 2 criteria? No. Patient's initial sepsis screen is negative. Does the patient have a suspected source of infection? No. Patient's initial sepsis screen is negative. Risk Assessment: Do you want to hurt yourself or someone else? Patient reports no desire to harm self or others. Onset of symptoms was February 02, 2024. 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 - Infectious Disease History:: Denies. - Social history:: Smoking status: Reported history of juuling and/or vaping. Screenin:18 [facility] ED Fall Risk Assessment (Adult) History of falling in the last 3 months, tl4 including since admission No falls in past 3 months (0 pts) Confusion or Disorientation No (0 pts) Intoxicated or Sedated No (0 pts) Impaired Gait No (0 pts) Mobility Assist Device Used No (0 pt) Altered Elimination No (0 pt) Score/Fall Risk Level 0 - 2 = Low Risk Oriented to surroundings, Maintained a safe environment, Educated pt \\T\\ family on fall prevention, incl call for assistance when getting out of bed, Assessed \\T\\ reinforced patient's understanding of fall precautions, Hourly rounding (assess needs \\T\\ fall precautionary measures) done, Used ambulatory aids as needed (educated on \\T\\ assisted with), Used gait belt as appropriate. Abuse screen: Denies threats or abuse. Denies injuries from another. Nutritional screening: No deficits noted. Tuberculosis screening: No symptoms or risk factors identified. Assessment: 23:15 General: Appears in no apparent distress. Behavior is calm, cooperative. Pain: Denies tl4 pain. Neuro: Level of Consciousness is awake, alert, obeys commands, Oriented to person, place, time, situation, Moves all extremities. Gait is steady, Speech is normal, Reports dizziness. Cardiovascular: Capillary refill < 3 seconds Patient's skin is warm and dry. Respiratory: Airway is patent Respiratory effort is even, unlabored, Respiratory pattern is regular, symmetrical, Breath sounds are clear bilaterally. GI: Abdomen is non-distended, Abd is soft and non tender Reports nausea. : No signs and/or symptoms were reported regarding the genitourinary system. EENT: No signs and/or symptoms were reported regarding the EENT system. Derm: No signs and/or symptoms reported regarding the dermatologic system. Musculoskeletal: No signs and/or symptoms reported regarding the musculoskeletal system. 02/02 00:30 Reassessment: Patient appears in no apparent distress at this time. Patient and/or pf1 family updated on plan of care and expected duration. Pain level reassessed. Patient is alert, oriented x 3, equal unlabored respirations, skin warm/dry/pink. Patient states symptoms have improved. 01:30 Reassessment: Patient appears in no apparent distress at this time. Patient and/or pf1 family updated on plan of care and expected duration. Pain level reassessed. Patient is alert, oriented x 3, equal unlabored respirations, skin warm/dry/pink. Patient states feeling better. Patient states symptoms have improved. Vital Signs: 02/01 22:50 BP 111 / 66; Pulse 76; Resp 18; Temp 95.8; Pulse Ox 99% on R/A; Weight 77.11 kg; Height cm10 5 ft. 6 in. ; Pain 0/10; 02/02 00:01 BP 111 / 69; Pulse 70; Resp 18; Pulse Ox 100% on R/A; tl4 00:49 BP 107 / 71; Pulse 73; Resp 16; Pulse Ox 100% on R/A; Pain 0/10; pf1 01:30 BP 105 / 69; Pulse 73; Resp 16; Temp 97.9; Pulse Ox 100% on R/A; Pain 0/10; pf1 02/01 22:50 Body Mass Index 27.44 (77.11 kg, 167.64 cm) cm10 02/01 22:50 Pain Scale: Adult cm10 00:49 Pain Scale: Adult pf1 01:30 Pain Scale: Adult pf1 ED Course: 02/01 22:15 Patient arrived in ED. ra3 22:17 Cecelia Melgoza FNP-C is PHCP. kb 22:17 Andrews Hathaway MD is Attending Physician. kb 22:52 Triage completed. cm10 22:53 Arm band placed on Patient placed in an exam room, on a stretcher. cm10 23:17 CMP Sent. tl4 23:17 CBC with Diff Sent. tl4 23:17 No provider procedures requiring assistance completed. Initial lab(s) drawn, by wi, tl4 sent to lab. Inserted saline lock: 22 gauge in right antecubital area, using aseptic technique. Blood collected. 23:18 Patient has correct armband on for positive identification. Bed in low position. Call tl4 light in reach. Side rails up X 1. Adult w/ patient. Provided Education on: ED process. Client placed on continuous cardiac and pulse oximetry monitoring. NIBP monitoring applied. Door closed. Lights dimmed. Moved to private room. Warm blanket given. Diet: Patient given snack. 02/02 00:05 Notified ED physician of a critical lab result(s). Glucose 567. jw7 01:50 IV discontinued, intact, bleeding controlled, No redness/swelling at site. Pressure pf1 dressing applied. Administered Medications: 02/01 23:16 Drug: NS 0.9% IV 1000 ml IV at 1000 ml once Route: IV; Rate: 1000 ml; Site: left tl4 antecubital; Delivery: Primary tubing; 23:59 Follow up: Response: No adverse reaction; IV Status: Completed infusion; IV Intake: tl4 1000ml 02/02 00:37 Drug: Insulin Regular Human IVP 10 units IVP once {Co-Signature: pf1 (Shania Rm rv RN).} Route: IVP; Site: right antecubital; 01:51 Follow up: Response: No adverse reaction; Marked relief of symptoms; Blood sugar is pf1 lowered Medication: 02/01 23:18 VIS not applicable for this client. tl4 Intake: 23:59 IV: 1000ml; Total: 1000ml. tl4 Outcome: 02/02 01:41 Discharge ordered by . jaret 01:50 Discharged to home ambulatory, with family, pf1 01:50 Condition: improved 01:50 Discharge instructions given to patient, Instructed on discharge instructions, follow up and referral plans. Demonstrated understanding of instructions, follow-up care, 01:54 Patient left the ED. pf1 Signatures: Cecelia Melgoza, COMPOSITE SCIENCE TEACHER-C COMPOSITE SCIENCE TEACHER-Ckb Jean-Claude Carroll, RN RN Ora Solis RN RN jw7 Shania Rm, RN RN pf1 Crystal Arthur RN RN cm10 Yossi Randolph RN RN tl4 Alma Alford 3 Shania Rm RN pf1
[2024-02-03 10:07] VITALS: BP 105/69; TEMP 97.9; O2SAT 100
== END 2024-02-03 01:54 | disposition home or self-care (01) ==
LOC: ER 22:13
DX: E11.65 Type 2 diabetes mellitus with hyperglycemia (principal); Z21 Asymptomatic human immunodeficiency virus [HIV] infection status; Z88.5 Allergy status to narcotic agent
CPT/HCPCS: 85025; 36415; 82947 ×2; 80053; J1815; J7030

== ENCOUNTER 2024-07-06 00:34 | Emergency (ER) | payer OTHER ==
[2024-07-06] MEDS ORDERED: NA CHLORIDE 0.9% 1,000 ML ONE ×2 (01:22→02:58)
[2024-07-06 01:58] LABS: Absolute Basophils 0.1 K/uL (0-0.5); Absolute Eosinophils 2.6 K/uL (0-0.5); Absolute Lymphocytes (CBC) 2.8 K/uL (0.7-4.9); Absolute Monocytes 0.7 K/uL (0.1-1.3); Absolute Neutrophil 9.3 K/uL (1.8-8.0); Hematocrit 40.3 % (36.0-45.0); Hemoglobin 13.5 g/dL (12.0-15.0); Lymphocytes % 17.9 % (15.3-44.8); MCH 29.8 pg (27.0-35.0); MCHC 33.4 g/dL (32.0-36.0); MCV 89.4 fL (80-100); Monocytes % 4.2 % (3.3-12.3); Neutrophils % 59.9 % (41.7-73.7); Platelets 244 thou/uL (152-406); RBC Red Blood Cell Count 4.51 M/uL (3.86-4.86); Red Cell Distribution Width 12.4 % (12.1-15.2); Specific Gravity 1.028 (1.005-1.030); Sqamous Epithelial <5 /HPF (None Seen); Urine Bacteria None Seen /HPF (<20); Urine Bilirubin NEGATIVE (Negative); Urine Blood Negative (Negative); Urine Clarity Clear (Clear); Urine Color Colorless (Yellow); Urine Culture Reflex Order NOT NEEDED; Urine Glucose 4+ (Over) (Negative); Urine Ketones NEGATIVE (Negative); Urine Microscopic Reflex YN ORDER UMIC; Urine Mucus Slight /HPF (None Seen); Urine Nitrite NEGATIVE (Negative); Urine Protein NEGATIVE (Negative); Urine RBC <5 /HPF (None Seen); Urine Urobilinogen Normal (Normal); Urine WBC <5 /HPF (<5)
[2024-07-06 02:18] LABS: ALT/SGPT 21 U/L (13-56); AST/SGOT < 10 U/L (15-37); Albumin 3.6 g/dL (3.4-5.0); Albumin/Globulin Ratio 0.9 (1.1-1.8); Alkaline Phosphatase 141 U/L (45-117); Anion Gap 13.6 mEq/L (5.0-15.0); BETA HYDROXYBUTYRATE 0.14 mmol/L (0.02-0.27); BUN Blood Urea Nitrogen 28 mg/dL (7-18); Bicarbonate 23 mEq/L (21-32); Bilirubin Total 0.2 mg/dL (0.2-1.0); Globulin 3.9 g/dL (2.3-3.5); Glomerular Filtration Rate 34 ml/min (=/>90); Glucose Level 697 mg/dL (74-106); Potassium 4.6 mEq/L (3.5-5.1); Protein, Total 7.5 g/dL (6.4-8.2); Sodium Level 122 mEq/L (136-145)
[2024-07-06 02:38] LABS: Band Neutrophils 3 % (0-1); Differential Total Cells Count 100; Eosinophils 10 % (0-3); Lymphocytes 21 % (15-42); Monocytes 3 % (0-10); Reactive Lymphocytes 5 %; Segmented Neutrophils 58 % (40-80)
[2024-07-06 02:39] LABS: Blood Morphology Comment NOT SEEN (NOT SEEN); Platelet Estimate ADEQ
[2024-07-06] MEDS ORDERED: INSULIN REGULAR (HUMAN) 100 UNIT/ML ONE (02:57)
--- NOTE | 2024-07-06 04:37 | ER ---
Nurse's Notes [facility] Name: Radha Phillips Age: 48 yrs Sex: Female : 1975 Arrival Date: 07/06/2024 Time: 00:34 Bed 20 Private MD: Diagnosis: Type 2 diabetes mellitus with hyperglycemia Presentation: 07/06 00:46 Chief complaint: Patient states: "my meter keeps telling me that my blood sugar has ss been dropping throughout the day, like down to 80." Pt has no complaints at this time other than feeling high, but states she is high anyway because she smoked marijuana. Coronavirus screen: Client denies travel out of the [place] in the last 14 days. Ebola Screen: Patient denies exposure to infectious person. Patient denies travel to an Ebola-affected area in the 21 days before illness onset. Initial Sepsis Screen: Does the patient meet any 2 criteria? No. Patient's initial sepsis screen is negative. Does the patient have a suspected source of infection? No. Patient's initial sepsis screen is negative. Risk Assessment: Do you want to hurt yourself or someone else? Patient reports no desire to harm self or others. Onset of symptoms was July 05, 2024. 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 - Infectious Disease History:: HIV. - Social history:: Smoking status: unknown. Screenin:54 [facility] ED Fall Risk Assessment (Adult) History of falling in the last 3 months, kj2 including since admission No falls in past 3 months (0 pts) Confusion or Disorientation No (0 pts) Intoxicated or Sedated No (0 pts) Impaired Gait No (0 pts) Mobility Assist Device Used No (0 pt) Altered Elimination No (0 pt) Score/Fall Risk Level 0 - 2 = Low Risk Maintained a safe environment, Educated pt \\T\\ family on fall prevention, incl call for assistance when getting out of bed, Hourly rounding (assess needs \\T\\ fall precautionary measures) done. Abuse screen: Denies threats or abuse. Denies injuries from another. Nutritional screening: No deficits noted. Tuberculosis screening: No symptoms or risk factors identified. Assessment: 01:47 General: Appears in no apparent distress. Behavior is calm, cooperative. Pain: Denies kj2 pain. Neuro: Level of Consciousness is awake, alert, Oriented to person, place, time, situation. Cardiovascular: Patient's skin is warm and dry. Respiratory: Airway is patent Respiratory effort is even, unlabored. GI: No signs and/or symptoms were reported involving the gastrointestinal system. : No signs and/or symptoms were reported regarding the genitourinary system. 02:21 Reassessment: Dr. Hathaway notified of critical lab value. Glucose. ss 03:17 Reassessment: Patient appears in no apparent distress at this time. Patient and/or kj2 family updated on plan of care and expected duration. Pain level reassessed. Patient is alert, oriented x 3, equal unlabored respirations, skin warm/dry/pink. Vital Signs: 00:46 BP 134 / 99; Pulse 86; Resp 17; Temp 97.8(TE); Pulse Ox 100% on R/A; Weight 74.84 kg; ss Height 5 ft. 6 in. ; Pain 0/10; 01:48 BP 105 / 78; Pulse 73; Resp 18; Temp 98; Pulse Ox 99% on R/A; kj2 03:16 BP 110 / 86; Pulse 66; Resp 18; Temp 98; Pulse Ox 100% on R/A; kj2 04:58 BP 112 / 84; Pulse 74; Resp 18; Temp 98; Pulse Ox 100% on R/A; kj2 00:46 Body Mass Index 26.63 (74.84 kg, 167.64 cm) ss 00:46 Pain Scale: Adult ED Course: 00:37 Patient arrived in ED. jj6 00:49 Triage completed. ss 00:49 Arm band placed on right wrist. ss 00:57 Cecelia Mel[facility]za [facility]-C [facility]. kb 00:57 Andrews Hathaway MD is Attending Physician. kb 01:21 Michaela Meyer RN is Primary Nurse. kj2 01:46 Urinalysis w/ reflexes Sent. kj2 01:46 CMP Sent. kj2 01:46 CBC with Diff Sent. kj2 01:49 Inserted saline lock: 20 gauge in right antecubital area, using aseptic technique. kj2 Blood collected. Flushed with 10 mL NS. 03:17 Patient has correct armband on for positive identification. Bed in low position. Call kj2 light in reach. Side rails up X 1. Adult w/ patient. Provided Education on: call light. 03:18 by me, EKG done, by ED staff. kj2 04:56 No provider procedures requiring assistance completed. IV discontinued, intact, kj2 bleeding controlled, No redness/swelling at site. Pressure dressing applied. Administered Medications: 01:46 Drug: NS 0.9% IV 1000 ml IV at 1000 ml once Route: IV; Rate: 1000 ml; Site: right kj2 antecubital; 02:46 Follow up: Response: No adverse reaction kj2 03:15 Follow up: IV Status: Completed infusion; IV Intake: 1000ml kj2 03:11 Drug: NS 0.9% IV 1000 ml IV at 1 bolus Per protocol; 1000 mL bolus Route: IV; Rate: 1 kj2 bolus; Site: right antecubital; 04:59 Follow up: IV Status: Completed infusion; IV Intake: 1000ml kj2 04:59 Follow up: Response: No adverse reaction kj2 03:21 Drug: Insulin Regular Human IVP 10 units IVP once {Co-Signature: vc1 (Nazanin Pennington2 RN).} Route: IVP; Site: right upper arm; 04:59 Follow up: Response: No adverse reaction kj2 Medication: 04:55 VIS not applicable for this client. kj2 Intake: 03:15 IV: 1000ml; Total: 1000ml. kj2 04:59 IV: 1000ml; Total: 2000ml. kj2 Outcome: 04:36 Discharge ordered by . sp4 04:57 Discharged to home ambulatory, with family, kj2 04:57 Condition: stable 04:57 Discharge instructions given to patient, Instructed on discharge instructions, follow up and referral plans. Demonstrated understanding of instructions, follow-up care, 05:00 Patient left the ED. kj2 Signatures: Cecelia Melgoza, GISEL-C GISEL-Ayesha Pandey, MAURISIO RN Rekha Dubon Andrews, MD MD sp4 Michaela Meyer RN RN kj2 Nazanin Pennington RN vc1 Corrections: (The following items were deleted from the chart) 04:57 04:55 Infectious Disease History: Denies. kj2 kj2
--- NOTE | 2024-07-06 04:37 | EDPHYS ---
Physician Documentation [facility] Name: Radha Phillips Age: 48 yrs Sex: Female : 1975 Arrival Date: 07/06/2024 Time: 00:34 Bed 20 Private MD: ED Physician Andrews Hathaway HPI: 07/06 01:27 This 48 yrs old Female presents to ER via Ambulatory with complaints of Low Blood Sugar.kb 01:27 Patient is a 48-year-old female who presents for low blood sugar that has been ongoing kb all day. States her meter has been reading in the 70s and 80s today. States she has been drinking soda and sweet tea to get her blood sugar up but it is only been going up about 5 points, highest reading of 81. Current reading on meter is 76, glucose meter in the ER reads HI (greater than 500). Patient denies any symptoms. States she did smoke some marijuana shortly before arrival so she is high.. 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 - Infectious Disease History:: HIV. - Social history:: Smoking status: unknown. ROS: 01:26 Constitutional: As per HPI kb 07:22 All other systems are negative, sp4 Exam: 01:26 Constitutional: This is a well developed, well nourished patient who is awake, alert, kb and in no acute distress. Head/Face: Normocephalic, atraumatic. ENT: Moist Mucous membranes Cardiovascular: Regular rate Respiratory: Respirations even and unlabored. No increased work of breathing. Talking in full sentences Abdomen/GI: Soft, non-tender. No distention Skin: Warm, dry with normal turgor. Normal color. MS/ Extremity: Pulses equal, no cyanosis. Neurovascular intact. Full, normal range of motion. Neuro: Awake and alert, GCS 15, oriented to person, place, time, and situation. Moves all extremities. Normal gait. 07:22 ECG was reviewed by the Attending Physician. EKG at 0308 reveals normal sinus rhythm at sp4 rate of 63 Vital Signs: 00:46 BP 134 / 99; Pulse 86; Resp 17; Temp 97.8(TE); Pulse Ox 100% on R/A; Weight 74.84 kg; ss Height 5 ft. 6 in. ; Pain 0/10; 01:48 BP 105 / 78; Pulse 73; Resp 18; Temp 98; Pulse Ox 99% on R/A; kj2 03:16 BP 110 / 86; Pulse 66; Resp 18; Temp 98; Pulse Ox 100% on R/A; kj2 04:58 BP 112 / 84; Pulse 74; Resp 18; Temp 98; Pulse Ox 100% on R/A; kj2 00:46 Body Mass Index 26.63 (74.84 kg, 167.64 cm) ss 00:46 Pain Scale: Adult ss MDM: 00:57 Patient medically screened. kb 01:27 Data reviewed: vital signs, nurses notes. kb 01:45 Transition of care: After a detail discussion of the patient's case, care is kb transferred to Andrews Hathaway MD. 07/06 00:57 Order name: Glucose, Ancillary Testing; Complete Time: 00:58 EDMS 07/06 00:58 Order name: CBC with Diff; Complete Time: 04:31 kb 07/06 00:58 Order name: CMP; Complete Time: 02:19 kb 07/06 00:58 Order name: Urinalysis w/ reflexes; Complete Time: 02:18 kb 07/06 00:58 Order name: BETA HYDROXYBUTYRATE; Complete Time: 02:19 kb 07/06 02:02 Order name: Manual Differential; Complete Time: 04:31 EDMS 07/06 04:22 Order name: Glucose, Ancillary Testing; Complete Time: 04:31 EDMS 07/06 00:58 Order name: EKG; Complete Time: 00:58 kb 07/06 00:58 Order name: IV Start; Complete Time: 01:47 kb 07/06 00:58 Order name: EKG - Nurse/Tech; Complete Time: 03:14 kb EC:22 Rate is 63 beats/min. Rhythm is regular, Normal Sinus Rhythm. QRS Jackson is Normal. NC sp4 interval is normal. QRS interval is normal. QT interval is normal. No Q waves. T waves are Normal. No ST changes noted. Clinical impression: Normal ECG. Interpreted by me. Reviewed by me. Administered Medications: 01:46 Drug: NS 0.9% IV 1000 ml IV at 1000 ml once Route: IV; Rate: 1000 ml; Site: right kj2 antecubital; 02:46 Follow up: Response: No adverse reaction kj2 03:15 Follow up: IV Status: Completed infusion; IV Intake: 1000ml kj2 03:11 Drug: NS 0.9% IV 1000 ml IV at 1 bolus Per protocol; 1000 mL bolus Route: IV; Rate: 1 kj2 bolus; Site: right antecubital; 04:59 Follow up: IV Status: Completed infusion; IV Intake: 1000ml kj2 04:59 Follow up: Response: No adverse reaction kj2 03:21 Drug: Insulin Regular Human IVP 10 units IVP once {Co-Signature: vc1 (Nazanin Pennington RN).} Route: IVP; Site: right upper arm; 04:59 Follow up: Response: No adverse reaction kj2 Disposition: 04:36 Co-signature as Attending Physician, Andrews Hathaway MD I agree with the assessment sp4 and plan of care. I reviewed the patient's care provided by Advanced Practice Provider \T\ agree w/ the diagnosis \T\ care plan. I personally saw the pt \T\ performed a substantive portion of the visit, incldng all aspects of the (History/Exam/Medical Decision Making). Disposition Summary: 07/06/24 04:36 Discharge Ordered Notes: Location: Home sp4 Problem: new sp4 Symptoms: have improved sp4 Condition: Stable sp4 Diagnosis - Type 2 diabetes mellitus with hyperglycemia sp4 Followup: sp4 - With: Private Physician - When: 7 - 10 days - Reason: Recheck today's complaints Discharge Instructions: - Discharge Summary Sheet sp4 - Hyperglycemia sp4 Forms: - Patient Portal Instructions sp4 Signatures: Dispatcher [employer] Cecelia Burton FNP-C FNP-Ckb Blanchard, Shelby RN Andrews Waterman MD MD sp4 Michaela Meyer RN RN kj2 Nazanin Pennington RN vc1 Corrections: (The following items were deleted from the chart) 04:57 04:55 Infectious Disease History: Denies. kj2 kj2
[2024-07-06 05:39] VITALS: TEMP 98
[2024-07-06 05:41] VITALS: O2SAT 100
[2024-07-06 05:42] VITALS: BP 112/84
--- NOTE | 2024-07-06 16:55 | EKG ---
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
== END 2024-07-06 05:00 | disposition home or self-care (01) ==
LOC: ER 00:34
DX: E11.65 Type 2 diabetes mellitus with hyperglycemia (principal); Z21 Asymptomatic human immunodeficiency virus [HIV] infection status
CPT/HCPCS: 93005; 85025; 81001; 36415; 82947 ×2; 80053; 82010; J7030 ×2; 96361; 96374; 99284